=== PATIENT | male | born 1960 | race Caucasian/White ===

== ENCOUNTER 2016-06-02 23:07 | Inpatient (IN) | payer OTHER ==
--- NOTE | ~2016-06-02 | CO ---
Unit #: [id number] #: [id number] Patient: RICHIE DINERO [id number] [address] [place], [place] [address] [id number] I MR#: [id number] NAME: RICHIE DINERO. ROOM: 467 Age: 56 Sex: M Admission Date: 06/03/2016 : 1960 Attending Physician: Benito Peng M.D. Consultation Date: 06/06/2016 CONSULTATION REPORT DISCUSSION Mr. Richie Benavidez is a 56-year-old male, seen on 06/06/2016. The patient interviewed, chart reviewed, and obtained information from nursing staff. The patient feeling better with medications, still having withdrawals symptom, mood lability, irritability. Vital signs stable; temperature 98.4, pulse 68, blood pressure 138/74, oxygen saturation 100%. The patient reported still having anxiety, mood lability, restlessness. The patient is on 72-hour hold and has a sitter. Denied any current suicidal or homicidal ideation. The patient's urine drug screen was positive for benzodiazepine, cocaine, amphetamine, opioids. REVIEW OF SYSTEMS Complete review of systems is unremarkable except as mentioned above. MENTAL STATUS EXAMINATION General appearance; the patient dressed in hospital attire, seemed somewhat anxious and nervous. Attention span and concentration were poor. Speech was slow with long pauses. Oriented in time, place, and person. Mood and affect were labile. Thought process was circumstantial. Thought content; the patient was somewhat guarded, paranoid, but denied any thoughts of harming self or others. Recent and remote memory, poor. Language, able to name object and repeat phrases. Fund of knowledge, fair. Insight and judgment, fair to slightly impaired. DIAGNOSES 1. Opioid use disorder, severe, F11.20. 2. Cannabis abuse, moderate, F12.20. 3. Major depressive disorder, recurrent, severe, F33.2. ASSESSMENT/PLAN 1. Supportive psychotherapy and psychoeducation provided to the patient. 2. Educated about benefits and side effects of medication and course and prognosis of illness. 3. Advised to continue with current treatment on the inpatient unit. If needed, consider further adjustment of medication. The patient currently has a sitter. We will continue with the treatment. Please feel free to call if any questions telephone #[phone]. Dictated by... Didi Monterroso/chandler Unit #: [id number] #: [id number] Patient: RICHIE DINERO TD: 06/07/2016 06:24 JOB #: [id number] CONSULTATION REPORT Page 1 of 1 X Kilo Castañeda MD X CONSULTATION REPORT
--- NOTE | ~2016-06-02 | CO ---
Unit #: [id number] #: [id number] Patient: RICHIE DINERO [id number] [facility] [address]. [place], [place] [address] [id number] I MR#: [id number] NAME: RICHIE DINERO. ROOM: 467 Age: 56 Sex: M Admission Date: 06/03/2016 : 1960 Attending Physician: Benito Peng M.D. Primary Care Physician: No Primary Care Physician Consultation Date: 06/07/2016 CONSULTATION REPORT DISCUSSION Mr. Richie Dinero is a 56-year-old male seen on 06/07/16 in room 467, bed 1 at [facility]. The patient was admitted with overdose. Patient dressed casually in hospital attire. Has a sitter. The patient continues to report that he needs to go to inpatient psych after he is done treatment here. The patient still reports endorsing feeling sad, depressed, feeling of hopelessness, worthlessness, passive SI, anxious, nervous. Reports medication is helping him but still having above-mentioned symptoms. Vital signs stable, 98.4, 70, respirations 16, blood pressure 117/85. REVIEW OF SYSTEMS A complete review of systems is unremarkable. MENTAL STATUS EXAMINATION General appearance - Patient dressed casually in hospital attire. Attention span, concentration - Fair. Speech - Slow. Thought process - Circumstantial, guarded. Patient denied any thoughts of harming others but having passive SI. Denied any auditory or visual hallucinations. Recent and remote memory - Fair to poor. Language - Intact. Fund of knowledge - Fair. Insight and judgment - Fair to poor. DIAGNOSIS Opiate use disorder, severe - F11.20; cannabis abuse, moderate - F12.20; major depressive disorder, recurrent, severe - F33.2. ASSESSMENT AND PLAN 1. Supportive psychotherapy and psychoeducation provided to the patient. 2. Educated about benefits and side effects of medication and course and prognosis of illness. 3. Advised to continue with 1:1 monitoring and consider transferring patient to [facility] once the patient is medically stable. Please feel free to call with any questions, telephone number . Dictated by... Kilo Castañeda M.D. GRSI/teri Unit #: [id number] #: [id number] Patient: RICHIE DINERO TD: 06/08/2016 11:36 JOB #: [id number] CONSULTATION REPORT Page 1 of 1 X Kilo Castañeda MD CONSULTATION REPORT
--- NOTE | ~2016-06-02 | CO ---
Unit #: [id number] #: [id number] Patient: SIMONA DINERO [id number] [address] [place], [place] [address] [id number] I MR#: [id number] NAME: SIMONA DINERO. ROOM: [facility] Age: 56 Sex: M Admission Date: 06/03/2016 : 1960 Attending Physician: Lizzy Chaudhari M.D. Primary Care Physician: Melania Primary Care Physician Consultation Date: 06/03/2016 CONSULTATION REPORT REASON FOR CONSULT ICU management. CHIEF COMPLAINT Unresponsiveness. HISTORY OF PRESENT ILLNESS This is a 56-year-old male with past medical history significant for polysubstance abuse, depression, diabetes and chronic alcohol abuse, who presented to the emergency room yesterday night after he was found unresponsive. Apparently patient was brought to the emergency room yesterday night via EMS after he was found unresponsive in a friend's bathroom. Patient was in his usual health condition before this episode. Patient was unresponsive and hypoxic on presentation. He was given Narcan multiple times in the ER with temporary arousal; however, by the time he made it to the ICU patient was very lethargic and hard to arouse and so a STAT blood gas was obtained which was consistent with acute hypercarbic respiratory failure. Patient was placed on BiPAP and multiple Narcans were given to the patient with finally improvement in his mental status. Currently he is awake, alert, following commands. Patient denied any fever, chills or night sweats. He had some dry cough today but no sputum production, no chest pain. He is feeling tired overall. REVIEW OF SYSTEMS A 12-point review of systems was obtained and was negative except for what was mentioned in the HPI. PAST MEDICAL HISTORY 1. Polysubstance abuse. 2. Depression. 3. Suicidal attempts in the past. 4. Diabetes mellitus type 2. 5. Chronic alcohol abuse. 6. Tobacco abuse. 7. GERD. 8. Obesity. PAST SURGICAL HISTORY 1. Hemorrhoidectomy. 2. Right knee surgery. Unit #: [id number] #: [id number] Patient: SIMONA DINERO 3. Umbilical hernia repair. SOCIAL HISTORY Patient smokes approximately a pack per day and he drinks a fifth of alcohol daily. He has active history of polysubstance abuse including cocaine, methamphetamine, heroin and marijuana. FAMILY HISTORY None. ALLERGIES Morphine. HOME MEDICATION 1. Zoloft. 2. Metformin. 3. Carafate. 4. Multivitamin. 5. Aspirin. 6. Protonix. 7. Oxycodone. PHYSICAL EXAMINATION GENERAL: Patient appears tired and fatigued. He is slightly lethargic but able to be aroused with verbal stimuli. VITAL SIGNS: Temperature 98.1, blood pressure 105/59. HEENT: Normocephalic and atraumatic. PERRLA. EOMI. NECK: Supple. No JVD. No lymphadenopathy. CHEST: Mildly diminished bilaterally with fine rhonchi on the right lower base. HEART: S1, S2. No murmur, gallops or rubs. ABDOMEN: Soft, nontender. Bowel sound is positive. No hepatosplenomegaly. EXTREMITIES: No edema or cyanosis. SKIN: No rashes. DIAGNOSTIC STUDIES LABORATORY: Blood gas 7.28/52/125. Creatinine 1.6, chloride 107, CO2 27, white blood count 11.4. IMAGING: Chest x-ray slight infiltrate right lower base. ASSESSMENT 1. Acute hypoxic hypercarbic respiratory failure. 2. Status post drug overdose. 3. Acute kidney injury. 4. Aspiration pneumonia. 5. DME related to drug overdose. 6. Morbid obesity. PLAN 1. Patient is ill appearing but he is better currently on BiPAP. 2. Will wean BiPAP down/off as tolerated. 3. Continue IV hydration and follow lactic acid. 4. Broad-spectrum antibiotics pending culture. 5. Bronchodilator and mucolytics. 6. N.p.o. until he is more alert. 7. DVT prophylaxis. Unit #: [id number] #: [id number] Patient: SIMONA DINERO 8. Counseling regarding smoking and polysubstance abuse. 9. Diet modification for weight loss. Critical care time spent on this patient was 35 minutes. Dictated by... Khurram Álvarez M.D. EA/jessie TD: 06/03/2016 18:06 JOB #: [id number] CONSULTATION REPORT Page 1 of 1 X KHURRAM PHILLIPS MD X CONSULTATION REPORT
--- NOTE | ~2016-06-02 | DS ---
Unit #: [id number] #: [id number] Patient: SIMONA DINERO [id number] [address] [place], [place] [address] [id number] I MR#: [id number] NAME: SIMONA DINERO. ROOM: 467 Age: 56 Sex: M Admission Date: 06/03/2016 : 1960 Discharge Date: 06/07/2016 Attending Physician: Benito Peng M.D. Primary Care Physician: No Primary Care Physician DISCHARGE SUMMARY DISCHARGE DIAGNOSES 1. Acute hypoxic respiratory failure, which has resolved. Patient is oxygenating at 94% on room air and, with ambulation, is 98% to 99%. 2. Drug overdose. 3. Aspiration pneumonia in the left upper lobe. 4. Suicide ideation with attempt. 5. Hypomagnesemia. PROCEDURES None. CONSULTANTS 1. Dr. Matthew Álvarez of pulmonary. 2. Dr. Castañeda of psychiatry DIAGNOSTIC STUDIES IMAGING: Chest x-ray on June 02, 2016. Impression: Cardiomegaly with left base atelectasis or infiltrate and a trace amount of left pleural fluid. Lung volumes are low. Another chest x-ray on June 06, 2016. Heart size normal limits. Patient has developed patchy infiltrates in both lungs, most pronounced in the left upper lobe consistent with possible pneumonia. No pneumothorax seen. There may be a trace left pleural effusion. LABORATORY: On the day of discharge, patient's labs are: BMP: Glucose 178, BUN 9, creatinine 0.8, sodium is 144, potassium 3.7, chloride 107, CO2 30, calcium 8.8, magnesium was 1.3, total protein is 5.7, albumin is 2.9, total bilirubin was 0.2, AST was 28, ALT of 66, and alk phos 69. Patient's hemoglobin A1c was 5.9. CBC with WBC of 8.3, RBC of 3.82, hemoglobin is 11.5, hematocrit is 34.7, MCV is 90.7, MCH is 30.2, MCHC is 33.3, RDW 13.7, platelets 227, and MPV of 7.7. Patient's sputum had normal respiratory carla. Blood culture had no growth. HOSPITAL COURSE Patient is a 56-year-old male with past medical history of type 2 diabetes, polysubstance abuse, chronic depression with prior suicide attempt, chronic alcohol usage, tobacco usage, obesity, and acid reflux who presented to the hospital via EMS and was unresponsive. When seen in the emergency department by the admitting physician, patient was awake and aroused. Patient was found unresponsive in the friend's bathroom. Patient was given Narcan in the emergency department with marginal response. Patient was hypoxic with room air sat of 88%. He was given the addition of Narcan and had improved in his mental status. Patient was Unit #: [id number] #: [id number] Patient: SIMONA DINERO hydrated and given a gram of Rocephin, azithromycin, and clindamycin with finding of left lower lobe infiltrates. He was admitted to the ICU for poor respiratory status. He was placed on BiPAP. Patient did become more alert and awake later on and stated that he had overdosed in an attempt for suicide. Patient tells me that he is suicidal when he is depressed and he is depressed because he had lost a child as well as multiple family members a couple of years ago. He and his have been , but are still . He tells me that he is unhappy with his current life status and had fluctuations in suicidal ideation throughout this hospitalization. Patient was seen consultation with Dr. Castañeda, psychiatry. Patient's did come by to visit patient during this hospitalization and together, they have agreed that it is best that patient be admitted to [facility] for continuing major depression with multiple suicidal attempts. At this time, patient is oxygenating well on room air. He does have some chest wall pain, but repeat chest x-ray is stable. We did perform 2D echo on this patient with normal findings. Of note, patient did have a stress echo on April 12, 2016, and the impression at that time was patient probably had prior inferior infarction with no ischemia and probably involving the right ventricle, but he did have a normal EKG on Lexiscan and normal ejection fraction of 50%. Noted his 2D echo today shows that he has a left ventricular systolic function estimated to be about 60%, mild concentric left ventricular hypertrophy, no regional wall motion abnormalities noted, mildly dilated left ventricle, normal valvular function, no evidence of any prior (1) . It is thought by myself and Dr. Jennifer Álvarez that patient is stable to be discharged to [facility] for continuing psychiatric care there. The patient was discharged in stable condition. DISCHARGE ACTIVITIES Patient can ambulate with a rolling walker. DISCHARGE MEDICATIONS Include: 1. Tylenol 650 mg every 6 hours as needed for pain. 2. Magnesium oxide 30 mL every 6 hours as needed for constipation. 3. Gabapentin 300 mg orally 3 times daily. 4. Trazodone 100 mg orally at bedtime. 5. Metformin 500 mg orally twice daily. 6. Requip 1 mg orally at bedtime. 7. Vistaril 50 mg orally 3 times daily. 8. Multivitamin 1 tablet orally daily. 9. Aspirin 81 mg orally daily. 10. Vitamin B12 1 tablet orally 3 times daily. 11. Magnesium oxide 400 mg orally twice daily. 12. Levaquin 750 mg orally until June 10, 2016. This dictation took 45 minutes to include coordinating care and patient education. Dictated by... Tish Cheatham PA-C for Didi Cano/leslie TD: 06/08/2016 05:49 JOB #: [id number] Unit #: [id number] #: [id number] Patient: SIMONA DINERO DISCHARGE SUMMARY Page 1 of 1 X X DISCHARGE SUMMARY
--- NOTE | ~2016-06-02 | CR71 ---
[facility] A Service of [facility] RADIOLOGY TEXT RESULTS PATIENT: SIMONA DINERO LOCATION: [facility] 46-01 : [birth year] UNIT #: [id number] AGE: [address]: Benito Peng MD SEX: M ORDER DR: [id number] [facility] [address] [place], [place] [address] [id number] MR#: [id number] Acc #: [id number] NAME: SIMONA DINERO. : 1960 SEX: M STUDY DATE/TIME: 06/06/2016 12:09 UNIT: [facility] ROOM: [facility] STUDY DESCRIPTION: CR Chest Single View Attending Physician: Benito Peng M.D. Ordering Physician: Brennan Taylor M.D. Primary Care Physician: Primary Care Physician No MEDICAL IMAGING REPORT This report is preliminary unless electronic signature is present EXAM Portable chest. INDICATIONS Shortness of breath starting today. COMARISON: Comparison is made to a prior exam from June 02, 2016. FINDINGS Heart size is within normal limits for portable technique. Patient has developed patchy infiltrates in both lungs most pronounced within the left upper lobe. These are new when compared to the prior exam and certainly could reflect multifocal pneumonia. Short-term followup exam to document resolution is recommended. No pneumothorax is seen. There may be a trace left pleural effusion. Dictated by... Nyla Andrade M.D. THIS IS AN ELECTRONICALLY VERIFIED REPORT Nyla Andrade M.D. at 06/07/2016 12:26 PM AFF/mitra TD: 06/06/2016 15:24 JOB #: [id number] MEDICAL IMAGING REPORT Page 1 of 1 COPY
--- NOTE | ~2016-06-02 | HP ---
Unit #: [id number] #: [id number] Patient: SIMONA DINERO [id number] [place] [id number] [facility]. [place], [place] [address] [id number] MR#: [id number] NAME: SIMONA DINERO. ROOM: [facility] Age: 56 Sex: M Admission Date: 06/03/2016 : 1960 Attending Physician: Lizzy Chaudhari M.D. Primary Care Physician: No Primary Care Physician HISTORY AND PHYSICAL CHIEF COMPLAINT Unresponsiveness. HISTORY OF PRESENT ILLNESS Mr. Dinero is a 56-year-old male brought to the emergency department last evening unresponsive. The patient does arouse now and ask for water, but will not give me any history on what lead to him being admitted. Thus, history is taken only from the chart. The patient presented to the emergency room via EMS at approximately 10:40 last evening, after being found unresponsive in a friend's bathroom. He was reportedly alert and functioning normally prior to entering the restroom. Onset of altered mental status cannot be confirmed. The patient was given Narcan by EMS with marginal response. Upon presentation pulse rate was mildly elevated at 100, blood pressure 103/69 and oxygen saturations were low at 88% on room air. The patient was given another 2 mg of Narcan in the emergency room upon arrival with some improvement in mental status. He was also given a 1 liter normal saline bolus and given Rocephin, azithromycin and clindamycin due to findings of a left lower lobe infiltrate. He was given another 2 mg of Narcan I believe and became arousable. He was admitted to the ICU given his poor respiratory status. The patient has become increasingly hypoxic overnight. He is now maintained on BiPAP. I have given him 2 mg of Narcan this morning and the patient is now more awake. He states he does not know what happened. PAST MEDICAL HISTORY 1. History of polysubstance abuse. To record review the [facility] after presenting for alcohol and polysubstance use. During that hospitalization he was transferred to this facility, where he was found to have a T11 compression fracture and a syncopal episode. He underwent Cardiolite that was negative. He was subsequently [facility]. 2. History of depression with prior suicide attempt. 3. Diabetes mellitus type 2. Unknown to me if it is insulin requiring, though per record review it does not appear it is. 4. Chronic alcohol abuse. 5. Tobaccoism. 6. Gastroesophageal reflux disease. 7. Obesity. PAST SURGICAL HISTORY 1. Hemorrhoidectomy. 2. Right knee surgery. Unit #: [id number] #: [id number] Patient: SIMONA DINERO 3. Umbilical hernia repair. SOCIAL HISTORY The patient smokes approximately a pack of cigarettes per day and per record review drinks about a fifth of alcohol daily. He also has a history of polysubstance abuse, including cocaine, methamphetamine, heroin and marijuana. FAMILY HISTORY Per record review, none. ALLERGIES Morphine. HOME MEDICATIONS Not currently available to me at this time. However, the patient was discharged from this facility on 1. Zoloft 100 mg in the morning. 2. Metformin 500 mg b.i.d. 3. Carafate 1 g p.o. q.12 h. 4. Daily multivitamin. 5. Aspirin 81 mg daily. 6. Protonix 40 mg daily. 7. Oxycodone for a short time frame. It is unclear to me if he is still taking any of these medications. REVIEW OF SYSTEMS The patient arouses with stimulation, asks for water, but otherwise ten point review of systems is unobtainable. PHYSICAL EXAMINATION GENERAL: The patient is arousable and asks for water. He does not appear in any acute distress. However, I will note he falls asleep rather easily. VITALS: Temperature 97.9, blood pressure 94/53, pulse rate 85, respiratory rate 16, oxygen saturation currently 99% on BiPAP after Narcan. Current BiPAP settings include 14/5. HEENT: Pupils are equally round and reactive bilaterally. Anicteric sclerae. No conjunctival pallor. Oropharynx appears to not have any erythema or exudate, but is obstructed due to BiPAP. NECK: Supple. No lymphadenopathy. No thyromegaly. No jugular venous distension. LUNGS: Mildly diminished bilaterally, but otherwise clear, without wheezes, rhonchi or crackles. HEART: Regular rate and rhythm without murmur, rub or gallop. ABDOMEN: Soft, nontender and nondistended. Positive bowel sounds. No appreciable hepatosplenomegaly. EXTREMITIES: No cyanosis, clubbing or edema. Pedal pulses 2/4. SKIN: Warm, moist. No appreciable rash. There is some thickening of the skin on the knees. Toenails are thickened and long. NEUROLOGIC: Again, pupils are equally round and reactive as noted. The patient does move all four extremities. Deep tendon reflexes are 2/4 in the upper and lower extremities bilaterally, including biceps, brachial radialis, patellar. He has a negative Babinski bilaterally. Sensation grossly appears intact. Gait and rapid alternating hand movements were not assessed due to mental status. PSYCHIATRIC: Sedated. Seems avoidant. MUSCULOSKELETAL: No joint erythema or malformation noted. Unit #: [id number] #: [id number] Patient: SIMONA DINERO DIAGNOSTIC STUDIES IMAGING: Chest x-ray done in the emergency department reveals left lower lobe infiltrate versus atelectasis. LABORATORY: In the emergency department upon presentation, initially white blood cell count 14.5, hemoglobin 13.3, platelets 255,000. This morning white blood cell count now down to 11.4, hemoglobin 12.3 and platelet count 230,000 with 8% bands. Upon presentation the patient had an elevated creatinine of 1.6, which is now down to 1.3 this morning. AST elevated at 218, ALT 150, alkaline phosphatase 107 upon presentation last evening, and alcohol is negative. LFTs were not checked this morning. Glucose this morning is elevated at 240, but otherwise lab work is unremarkable. Lactic acid upon presentation elevated at 3.0. ABG upon presentation revealed pH 7.21, pCO2 61, pO2 73. This morning, after being on BiPAP, pH is 7.15, pCO2 81, pO2 51. Urine drug screen is positive for benzodiazepines, cocaine, amphetamines and opiates. CARDIOVASCULAR: Twelve lead EKG done in the emergency department revealed Q waves in 1 and AVL and right bundle branch block in complete. Otherwise normal sinus rhythm. No ST or T wave abnormalities. ASSESSMENT 1. Sepsis secondary to left lower lobe pneumonia. Question aspiration versus healthcare associated. 2. Acute hypercapnic hypoxic respiratory failure, multifactorial. 3. Altered mental status secondary to polysubstance overdose in combination with probable CO2 narcosis, related to polysubstance overdose. 4. Polysubstance overdose, including benzodiazepines, cocaine, amphetamine and opiates. 5. Acute kidney injury, prerenal. 6. Transaminitis. 7. History of alcohol abuse with negative alcohol level currently. 8. Depression with history of recent suicide attempt. 9. Recent T11 fracture. 10. Gastroesophageal reflux disease. 11. Diabetes mellitus type 2. PLAN 1. Will continue to monitor the patient in the ICU. 2. The patient has been started on empiric vancomycin and Zosyn in regard to his pneumonia. Will obtain a sputum gram stain and culture and blood cultures are also currently pending. Sepsis protocol has been initiated. 3. Will maintain the patient on BiPAP. As noted above, I have given him a single dose of Narcan and he seems to be more awake. I am going to follow up ABG in [address] him on a Narcan drip if mental status continues to decline. However, if he remains significantly acidotic will require intubation. This has been discussed with Dr. Álvarez, who is currently following the patient. 4. Monitor mental status. He does not appear to have any neurologic deficits at this time and I do not think CT scan of the head is necessary. 5. Will continue IV fluids in regard to acute kidney injury. This appears to be improving already. 6. Will check CPK in regard to transaminitis. Will also check a viral hepatitis panel and monitor closely. This may also be alcohol Unit #: [id number] #: [id number] Patient: SIMONA DINERO induced to some degree. Will have to monitor for signs of withdrawal. 7. Will place on Accu-Cheks every 6 hours with low-dose sliding scale. Hemoglobin A1c is currently pending. 8. DVT and GI prophylaxis. Time spent on admission was 60 minutes. Dictated by Lizzy Chaudhari M.D. SERAFIN/maureen TD: 06/03/2016 07:34 JOB #: [id number] HISTORY AND PHYSICAL Page 1 of 1 X Lizzy Chaudhari MD HISTORY AND PHYSICAL
--- NOTE | ~2016-06-02 | EKG ---
PATIENT: SIMONA DINERO UNIT #: [id number] Ventricular Rate: 91 BPM Atrial Rate: 91 BPM P-R Interval: 152 ms QRS Duration: 102 ms Q-T Interval: 382 ms QTC Calculation(Bezet): 469 ms P [place]: 62 degrees Calculated R [place]: 50 degrees Calculated T [place]: 6 degrees Diagnosis Line: Normal sinus rhythm Diagnosis Line: Incomplete right bundle branch block Diagnosis Line: Borderline ECG Diagnosis Line: When compared with ECG of 12-APR-2016 05:48, Diagnosis Line: No significant change was found Diagnosis Line: Confirmed by EDWARD SOLIZ MD ([id number]) on 06/04/2016 Diagnosis Line: 4:29:51 PM INTERPRETING MD: HEYDI UMANA
--- NOTE | ~2016-06-02 | CR72 ---
[facility] A Service of [facility] & [facility] RADIOLOGY TEXT RESULTS PATIENT: SIMONA DINERO LOCATION: [place] [id number] : [birth year] UNIT #: [id number] AGE: [address]: Lizzy Chaudhari MD SEX: M ORDER DR: [id number] [facility] [address]. [place], [place] [address] [id number] I MR#: [id number] #: [id number] NAME: SIMONA DINERO. : 1960 SEX: M STUDY DATE/TIME: 06/02/2016 2330 UNIT: [facility] ROOM: [facility] STUDY DESCRIPTION: CR Chest Single View Portable Attending Physician: Lizzy Chaudhari M.D. Ordering Physician: Han Montesinos M.D. Primary Care Physician: No Primary Care Physician MEDICAL IMAGING REPORT This report is preliminary unless electronic signature is present EXAM Portable chest on 06/02 at 2330. INDICATION Shortness of air, congestion, mental status changes today. FINDINGS AP portable chest compared with 12/06/2011. Heart is enlarged. Lung volumes are low. There is atelectasis or infiltrate in the left base. There is a small volume of left pleural fluid. No pneumothorax. IMPRESSION Cardiomegaly with left base atelectasis or infiltrate and a trace amount of left pleural fluid. Lung volumes are low. Dictated by... Duran Ramirez Jr., M.D. THIS IS AN ELECTRONICALLY VERIFIED REPORT Duran Ramirez Jr., M.D. at 06/03/2016 12:35 PM TONNY/corby TD: 06/03/2016 08:04 JOB #: [id number] MEDICAL IMAGING REPORT Page 1 of 1 COPY
--- NOTE | ~2016-06-02 | CO ---
Unit #: [id number] #: [id number] Patient: RICHIE DINERO [id number] [facility] [address] [facility]. [place], [place] [address] [id number] MR#: [id number] NAME: RICHIE DINERO ROOM: 467 Age: 56 Sex: M Admission Date: 06/03/2016 : 1960 Attending Physician: Benito Peng M.D. Primary Care Physician: Primary Care Physician No Consultation Date: 06/05/2016 CONSULTATION REPORT REASON FOR CONSULTATION Polysubstance abuse, anxiety, agitation. HISTORY OF PRESENT ILLNESS Mr. Richie Dinero is a 56-year-old male, seen in room 467, bed 1 at [facility] on 06/05/2016. The patient admitted using multiple drugs. The patient received treatment at [facility] from 03/31/2016 to 04/10/2016 with diagnosis of mood disorder, substance abuse disorder. The patient was on Wellbutrin, Zoloft, trazodone, and Seroquel. The patient has a history of alcohol dependence, opioid dependence, cocaine abuse, cannabis abuse. The patient was somewhat anxious and nervous. Denied any suicidal or homicidal ideation, but agitated. Currently, has a sitter and on a 72-hour hold. The patient was admitted in an unresponsive state. Urine drug screen was positive for multiple drugs. Urine drug screen was positive for benzodiazepine, cocaine, amphetamine, and opioids. PAST PSYCHIATRIC HISTORY Remarkable for history of depression and treatment at [facility] as mentioned above. MEDICAL HISTORY Remarkable for history of diabetes mellitus, chronic alcohol abuse, gastroesophageal reflux disease, and obesity. MEDICATIONS The patient is on Zoloft 100 mg in the morning, metformin 500 mg b.i.d., Carafate, aspirin, Protonix, and oxycodone. FAMILY HISTORY AND SOCIAL HISTORY The patient has a poor support system. No history of any abuse. History of substance abuse as mentioned above. REVIEW OF SYSTEMS Complete review of systems is unremarkable. MENTAL STATUS EXAMINATION General appearance, the patient dressed in hospital attire. Attention span and concentration, poor. Speech, slow, but regular rate. Oriented in time, place, and person. Mood and affect, labile. Thought process, circumstantial. Thought content, guarded, paranoid, mood lability, but denied any thoughts of harming self or others. Recent and remote memory, poor. Language, able to name object and repeat phrases. Fund of knowledge, fair. Insight and judgment, fair to slightly impaired. Unit #: [id number] #: [id number] Patient: RICHIE DINERO DIAGNOSES Psychiatric: Opioid use disorder, severe, F11.20, cannabis abuse, moderate, F12.20; major depressive disorder, recurrent, severe, F33.2. Secondary diagnosis: Deferred. Medical diagnosis: Please refer to H and P. Stressors: Psychosocial stressors. ASSESSMENT/PLAN 1. Supportive psychotherapy and psychoeducation provided to the patient. 2. Educated about benefits and side effects of medication and course and prognosis of illness. 3. Advised to continue with current treatment on the inpatient unit and continue with a sitter and one-to-one monitoring for safety of patient and resume home medication with a plan to add medication for withdrawal such as Neurontin 300 mg t.i.d., Vistaril 50 mg t.i.d., and Requip 1 mg at bedtime, and trazodone 100 mg at bedtime. We will continue to monitor. If needed, consider further adjustment of medication. Dictated by... Didi Monterroso/chandler TD: 06/06/2016 02:53 JOB #: [id number] CONSULTATION REPORT Page 1 of 1 X Kilo Castañeda MD X CONSULTATION REPORT
[~2016-06-02 23:07] MED LIST: ACETAMINOPHEN PO; AL-MAG HYDROX-S30 M1 PO; BAYER CHEWABLE81 MG PO; BUPROPION XL300 MG PO; CARAFATE1 GM PO; CERTAGEN PO; DESYREL50 MG PO; METFORMIN HCL500 M3 PO; NICOTINE P1 PATCH .1 TD; OXYCONTIN15 MG PO; PROTONIX PO; SEROQUEL XR200 MG PO; THORAZINE100 MG PO; TOPIRAMATE100 MG PO; VITAMIN B PO; ZOLOFT100 MG PO
[2016-06-02 23:44] LABS: BASOPHIL% 0.1 % (0-2.5); EOSINOPHIL% 0.1 % (0.0-7.0); HEMATOCRIT 40.5 % (38.0-50.0); HEMOGLOBIN 13.3 gm/dL (13.0-16.0); LYMPHOCYTE# 0.5 X10e3 (1.0-3.5); LYMPHOCYTE% 3.4 % (17.0-45.0); MEAN CELL VOLUME 91.3 FL (83-96); MEAN CORPUSCULAR HGB CONC 32.9 g/dL (30-36); MEAN PLATELET VOLUME 7.5 FL (6.5-11.5); MONOCYTE# 0.9 X10e3 (0-1.0); MONOCYTE% 6.3 % (3.0-12.0); NEUTROPHIL# 13.1 X10e3 (1.5-7.1); NEUTROPHIL% 90.1 % (40-75); PLATELET COUNT 255 X10e3 (140-420); RED BLOOD COUNT 4.43 X10e (3.90-5.60); RED CELL DISTRIBUTION WIDTH 13.8 % (11.0-15.5); WHITE BLOOD COUNT 14.5 X10e3 (4.0-10.5)
[2016-06-02 23:45] LABS: DIFF IND NO
[2016-06-03 00:06] LABS: ALBUMIN SERUM 4.3 g/dL (3.5-5.0); ALKALINE PHOSPHATASE 107 U/L (32-92); ALT (SGPT) 150 U/L (10-40); AST (SGOT) 218 U/L (10-42); BILIRUBIN, DIRECT 0.1 mg/dL (0.0-0.2); BILIRUBIN,INDIRECT 0.4 mg/dL (0.0-0.9); BILIRUBIN,TOTAL 0.5 mg/dL (0.2-2.0); BLOOD UREA NITROGEN 20 mg/dL (9-23); CALCIUM SERUM 8.8 mg/dL (8.4-10.2); CARBON DIOXIDE 26 mmol/L (22-31); CHLORIDE 100 mmol/L (100-111); CREATININE SERUM 1.6 mg/dL (0.6-1.4); GLOM FILT RATE Estimated 48.2 mL/min (>60); GLUCOSE FASTING 102 mg/dL (70-110); POTASSIUM 4.2 mmol/L (3.5-5.1); PROTEIN TOTAL SERUM 7.6 g/dL (6.0-8.3); SODIUM 140 mmol/L (135-145)
[2016-06-03 00:08] LABS: ALCOHOL BLOOD <5 mg/dL (0)
[2016-06-03 02:17] LABS: AMPHETAMINE POS (NEG); BARBITURATES NEG (NEG); BENZODIAZEPINES POS (NEG); COCAINE POS (NEG); MARIJUANA NEG (NEG); OPIATES POS (NEG); TRICYCLIC ANTIDEPRESSANTS NEG (NEG); U METHADONE NEG (NEG)
[2016-06-03 03:57] LABS: ARTERIAL BLD GAS O2 SATURATION 92.3 % (90.0-100.0); ARTERIAL BLOOD GAS HCO3 24.3 mmol/L; ARTERIAL BLOOD GAS PCO2 60.8 mmHg (35.0-45.0); ARTERIAL BLOOD GAS PO2 73.2 mmHg (80.0-100)
[2016-06-03 03:58] LABS: ARTERIAL BLOOD GAS ALLEN TEST NORMAL; ARTERIAL BLOOD GAS ART SITE LEFT RADIAL; ARTERIAL BLOOD GAS DELIVERY VENTURI MASK; ARTERIAL BLOOD GAS MET HB 0.9 %sat (0.0-2.0); ARTERIAL DRAW? YES
[2016-06-03 04:31] LABS: BASOPHIL% 0.4 % (0-2.5); EOSINOPHIL% 0.1 % (0.0-7.0); HEMATOCRIT 37.3 % (38.0-50.0); HEMOGLOBIN 12.3 gm/dL (13.0-16.0); LYMPHOCYTE# 0.6 X10e3 (1.0-3.5); LYMPHOCYTE% 4.9 % (17.0-45.0); MEAN CORPUSCULAR HEMOGLOBIN 30.3 PG (28-34); MEAN CORPUSCULAR HGB CONC 32.9 g/dL (30-36); MEAN PLATELET VOLUME 7.1 FL (6.5-11.5); MONOCYTE# 0.5 X10e3 (0-1.0); MONOCYTE% 4.6 % (3.0-12.0); NEUTROPHIL# 10.3 X10e3 (1.5-7.1); PLATELET COUNT 230 X10e3 (140-420); RED BLOOD COUNT 4.05 X10e (3.90-5.60); RED CELL DISTRIBUTION WIDTH 13.8 % (11.0-15.5); WHITE BLOOD COUNT 11.4 X10e3 (4.0-10.5)
[2016-06-03 04:32] LABS: DIFF IND YES
[2016-06-03 04:45] LABS: PLATELET ESTIMATE NORMAL (NORMAL)
[2016-06-03 04:46] LABS: ANISOCYTOSIS SL; OVALOCYTES PRESENT
[2016-06-03 04:51] LABS: BUN/CREATININE RATIO 17.69; CALCIUM SERUM 8.4 mg/dL (8.4-10.2); CREATININE SERUM 1.3 mg/dL (0.6-1.4); GLOM FILT RATE Estimated 61.9 mL/min (>60); POTASSIUM 3.8 mmol/L (3.5-5.1)
[2016-06-03 06:26] LABS: ARTERIAL BLD GAS O2 SATURATION 76.9 % (90.0-100.0); ARTERIAL BLOOD GAS HCO3 28.3 mmol/L; ARTERIAL BLOOD GAS MET HB 0.7 %sat (0.0-2.0)
[2016-06-03 06:33] LABS: ARTERIAL BLOOD GAS ALLEN TEST NORMAL; ARTERIAL BLOOD GAS ART SITE RIGHT BRACHIAL; ARTERIAL BLOOD GAS PCO2 81.1 mmHg (35.0-45.0); ARTERIAL BLOOD GAS PO2 51.1 mmHg (80.0-100); ARTERIAL BLOOD GAS pH 7.151 (7.350-7.450); ARTERIAL DRAW? YES
[2016-06-03 06:34] LABS: ARTERIAL BLOOD GAS DELIVERY BIPAP 14/5
[2016-06-03 08:16] LABS: ARTERIAL BLD GAS O2 SATURATION 88.9 % (90.0-100.0); ARTERIAL BLOOD GAS CARBOXY HB 0.7 %sat (0.0-9.0); ARTERIAL BLOOD GAS HCO3 26.5 mmol/L; ARTERIAL BLOOD GAS MET HB 0.9 %sat (0.0-2.0); ARTERIAL BLOOD GAS pH 7.239 (7.350-7.450)
[2016-06-03 08:17] LABS: ARTERIAL BLOOD GAS PCO2 61.9 mmHg (35.0-45.0); ARTERIAL BLOOD GAS PO2 62.9 mmHg (80.0-100)
[2016-06-03 08:18] LABS: ARTERIAL BLOOD GAS ALLEN TEST NORMAL; ARTERIAL BLOOD GAS ART SITE RIGHT BRACHIAL; ARTERIAL BLOOD GAS DELIVERY BIPAP 14/5; ARTERIAL DRAW? YES
[2016-06-03 09:32] LABS: URINE SOURCE CATH
[2016-06-03 09:42] LABS: URINE APPEARANCE CLEAR; URINE BILIRUBIN NEG (NEG); URINE BLOOD NEG (NEG); URINE COLOR YELLOW; URINE GLUCOSE NEG (NEG); URINE KETONE NEG (NEG); URINE LEUKOCYTE ESTERASE NEG (NEG); URINE NITRATE NEG (NEG); URINE PROTEIN NEG (NEG); URINE SPECIFIC GRAVITY 1.015 (1.003-1.035); URINE UROBILINOGEN 0.2 MG/DL (NEG)
[2016-06-03 11:47] LABS: ARTERIAL BLD GAS O2 SATURATION 97.7 % (90.0-100.0); ARTERIAL BLOOD GAS CARBOXY HB 0.3 %sat (0.0-9.0); ARTERIAL BLOOD GAS HCO3 24.9 mmol/L; ARTERIAL BLOOD GAS MET HB 0.8 %sat (0.0-2.0); ARTERIAL BLOOD GAS pH 7.281 (7.350-7.450)
[2016-06-03 11:49] LABS: ARTERIAL BLOOD GAS ALLEN TEST NORMAL; ARTERIAL BLOOD GAS ART SITE RIGHT BRACHIAL; ARTERIAL BLOOD GAS DELIVERY BIPAP 14/5; ARTERIAL BLOOD GAS PCO2 52.9 mmHg (35.0-45.0); ARTERIAL DRAW? YES
[2016-06-04 04:15] LABS: ARTERIAL BLOOD GAS CARBOXY HB 0.4 %sat (0.0-9.0); ARTERIAL BLOOD GAS HCO3 28.3 mmol/L; ARTERIAL BLOOD GAS MET HB 1.1 %sat (0.0-2.0); ARTERIAL BLOOD GAS PCO2 49.1 mmHg (35.0-45.0); ARTERIAL BLOOD GAS pH 7.369 (7.350-7.450)
[2016-06-04 04:20] LABS: ARTERIAL BLOOD GAS ALLEN TEST NORMAL; ARTERIAL BLOOD GAS ART SITE RIGHT RADIAL; ARTERIAL DRAW? YES
[2016-06-04 04:21] LABS: ARTERIAL BLOOD GAS DELIVERY BIPAP 14/5
[2016-06-04 05:03] LABS: BASOPHIL# 0.1 X10e3 (0-0.3); BASOPHIL% 0.9 % (0-2.5); DIFF IND NO; EOSINOPHIL# 0.1 X10e3 (0-0.7); EOSINOPHIL% 0.9 % (0.0-7.0); HEMATOCRIT 35.1 % (38.0-50.0); HEMOGLOBIN 11.7 gm/dL (13.0-16.0); LYMPHOCYTE# 1.8 X10e3 (1.0-3.5); LYMPHOCYTE% 18.9 % (17.0-45.0); MEAN CELL VOLUME 90.5 FL (83-96); MEAN CORPUSCULAR HEMOGLOBIN 30.1 PG (28-34); MEAN CORPUSCULAR HGB CONC 33.3 g/dL (30-36); MEAN PLATELET VOLUME 7.7 FL (6.5-11.5); MONOCYTE# 0.7 X10e3 (0-1.0); MONOCYTE% 7.4 % (3.0-12.0); NEUTROPHIL# 6.8 X10e3 (1.5-7.1); NEUTROPHIL% 71.9 % (40-75); PLATELET COUNT 178 X10e3 (140-420); RED BLOOD COUNT 3.88 X10e (3.90-5.60); RED CELL DISTRIBUTION WIDTH 13.8 % (11.0-15.5); WHITE BLOOD COUNT 9.4 X10e3 (4.0-10.5)
[2016-06-04 06:22] LABS: ALBUMIN SERUM 2.9 g/dL (3.5-5.0); BILIRUBIN,TOTAL 0.2 mg/dL (0.2-2.0); BUN/CREATININE RATIO 13.75; CALCIUM SERUM 7.8 mg/dL (8.4-10.2); CREATININE SERUM 0.8 mg/dL (0.6-1.4); GLOM FILT RATE Estimated 101.3 mL/min (>60); MAGNESIUM 1.2 mg/dL (1.6-3.0); POTASSIUM 3.7 mmol/L (3.5-5.1); PROTEIN TOTAL SERUM 5.7 g/dL (6.0-8.3)
[2016-06-05 03:02] LABS: HEMATOCRIT 36.8 % (38.0-50.0); HEMOGLOBIN 12.1 gm/dL (13.0-16.0); MEAN CORPUSCULAR HEMOGLOBIN 29.7 PG (28-34); MEAN PLATELET VOLUME 7.9 FL (6.5-11.5); RED BLOOD COUNT 4.09 X10e (3.90-5.60); RED CELL DISTRIBUTION WIDTH 14.1 % (11.0-15.5); WHITE BLOOD COUNT 8.2 X10e3 (4.0-10.5)
[2016-06-05 03:34] LABS: BUN/CREATININE RATIO 15.71; CALCIUM SERUM 8.8 mg/dL (8.4-10.2); CREATININE SERUM 0.7 mg/dL (0.6-1.4); MAGNESIUM 1.5 mg/dL (1.6-3.0)
[2016-06-06 07:18] LABS: HA AB IGM (HEPPAN) Nonreactive (()); HB CORE AB IGM (HEPPAN) Nonreactive (Nonreactive); HB S AG (HEPPAN) Nonreactive (Nonreactive); HEP C AB (HEPPAN) Nonreactive (Nonreactive); HEP C AB SIGNAL TO CUTOFF 0.01 ratio (<1.00)
[2016-06-06 12:29] LABS: CALCIUM SERUM 9.1 mg/dL (8.4-10.2); CREATININE SERUM 0.8 mg/dL (0.6-1.4); GLOM FILT RATE Estimated 101.3 mL/min (>60); POTASSIUM 3.5 mmol/L (3.5-5.1)
[2016-06-07 00:09] LABS: MAGNESIUM 1.5 mg/dL (1.6-3.0); POTASSIUM 4.2 mmol/L (3.5-5.1)
[2016-06-07 03:47] LABS: BASOPHIL% 0.2 % (0-2.5); DIFF IND NO; EOSINOPHIL# 0.1 X10e3 (0-0.7); EOSINOPHIL% 1.1 % (0.0-7.0); HEMATOCRIT 34.7 % (38.0-50.0); HEMOGLOBIN 11.5 gm/dL (13.0-16.0); MEAN CELL VOLUME 90.7 FL (83-96); MEAN CORPUSCULAR HEMOGLOBIN 30.2 PG (28-34); MEAN CORPUSCULAR HGB CONC 33.3 g/dL (30-36); MEAN PLATELET VOLUME 7.7 FL (6.5-11.5); MONOCYTE# 0.7 X10e3 (0-1.0); MONOCYTE% 8.1 % (3.0-12.0); NEUTROPHIL# 5.5 X10e3 (1.5-7.1); NEUTROPHIL% 66.6 % (40-75); PLATELET COUNT 224 X10e3 (140-420); RED BLOOD COUNT 3.82 X10e (3.90-5.60); RED CELL DISTRIBUTION WIDTH 13.7 % (11.0-15.5); WHITE BLOOD COUNT 8.3 X10e3 (4.0-10.5)
[2016-06-07 04:17] LABS: BUN/CREATININE RATIO 11.25; CALCIUM SERUM 8.8 mg/dL (8.4-10.2); CREATININE SERUM 0.8 mg/dL (0.6-1.4); GLOM FILT RATE Estimated 101.3 mL/min (>60); MAGNESIUM 1.3 mg/dL (1.6-3.0); POTASSIUM 3.7 mmol/L (3.5-5.1)
== END 2016-06-07 22:33 | disposition short-term general hospital (02) | DRG 917 ==
LOC: CED 23:07 → CEDOF 06-03 00:28 → CICCU2 06-03 03:28 → C4C 06-04 17:04
PROVIDERS: Emergency Medicine; Family Medicine; Internal Medicine; Physician Assistant Medical
PROC: B24BZZZ Ultrasonography of Heart with Aorta (ICD-10-PCS; principal; 2016-06-07)
DX: T40.1X2A Poisoning by heroin, intentional self-harm, initial encounter (principal); J69.0 Pneumonitis due to inhalation of food and vomit; J96.01 Acute respiratory failure with hypoxia; J96.02 Acute respiratory failure with hypercapnia; F33.2 Major depressive disorder, recurrent severe without psychotic features; F11.20 Opioid dependence, uncomplicated; N17.9 Acute kidney failure, unspecified; Y92.002 Bathroom of unspecified non-institutional (private) residence as the place of occurrence of the external cause; E83.42 Hypomagnesemia; E11.9 Type 2 diabetes mellitus without complications; Z79.84 Long term (current) use of oral hypoglycemic drugs; F12.20 Cannabis dependence, uncomplicated; F17.210 Nicotine dependence, cigarettes, uncomplicated; K21.9 Gastro-esophageal reflux disease without esophagitis; R74.0 Nonspecific elevation of levels of transaminase and lactic acid dehydrogenase [LDH]; R41.82 Altered mental status, unspecified; F10.10 Alcohol abuse, uncomplicated
CPT/HCPCS: 36415; 36600; 71010; 80048; 80053; 80074; 80076; 80202; 80307; 81003; 82550; 82803; 82947; 83036; 83605; 83735; 84132; 84484; 85025; 85027; 87040; 87070; 87205; 87806; 93005; 93306; 94640; 94660; 94760; 94761; 96361; 96374; 97116; 97163; 97166; 97535; 99285; C9113; G0480; J0456; J0696; J1650; J1815; J2060; J2310; J2543; J3370; J3475

== ENCOUNTER 2016-06-07 23:28 | Inpatient (IN) | payer OTHER ==
--- NOTE | ~2016-06-07 | DS ---
Unit #: [id number] #: [id number] Patient: SIMONA DINERO [id number] [facility] [address] [place] [address] [id number] MR#: [id number] NAME: SIMONA DINERO. ROOM: P207 Age: 56 Sex: M Admission Date: 06/07/2016 : 1960 Discharge Date: 06/13/2016 Attending Physician: Shanon Gómez M.D. Primary Care Physician: Primary Care Physician No DISCHARGE SUMMARY IDENTIFYING DATA Mr. Dinero is a 56-year-old single white male, who is a resident of [place], [place], and was transferred to us from [facility] on 72 hours hold. DISCHARGE DIAGNOSES Psychiatric: Major depressive disorder, recurrent, moderate, without psychotic features; opioid dependence, moderate and acute withdrawals; methamphetamine dependence, moderate; cocaine abuse, moderate; benzodiazepine abuse, moderate. Medical: Diabetes mellitus and gastroesophageal reflux disease. Stressors: Moderate psychosocial stressors. HISTORY OF PRESENT ILLNESS Please see initial psychiatric evaluation for details. PAST PSYCHIATRIC HISTORY Please see initial psychiatric evaluation for details. PAST MEDICAL HISTORY Please see initial psychiatric evaluation for details. HOSPITAL COURSE The patient was admitted to the adult psychiatric unit at [facility] and was oriented to the hospital environment. Routine p.r.n. medications were initiated, and he was started back on his home medications including his Wellbutrin, Zoloft, and Seroquel and initially was seen to be very agitated, irritable, impulsive, and refusing to stay in the treatment and showing poor insight into his situation and poor motivation towards treatment. However, he was able to settle down and was seen to be polite and pleasant and compliant with treatment recommendations and then was apologetic of his attitude earlier and was seen to be compliant with treatment recommendation and was taking the medications regularly and was tolerating them fairly well and as such, it was decided that he will be discharged home and will continue treatment on an outpatient basis. DISCHARGE MEDICATIONS Wellbutrin XL 300 mg in the morning for depression, Zoloft 200 mg a day for depression, Seroquel 200 mg a day for depression. DISCHARGE CONDITION Stable. Unit #: [id number] #: [id number] Patient: SIMONA DINERO CHENTE Vickers. Dictated by... Didi Estrada/chandler TD: 06/13/2016 07:38 JOB #: [id number] DISCHARGE SUMMARY Page 1 of 1 X Shanon Gómez MD DISCHARGE SUMMARY
--- NOTE | ~2016-06-07 | PN ---
Unit #: [id number] #: [id number] Patient: SIMONA DINERO [id number] [facility] [address] [place] [address] [id number] MR#: [id number] NAME: SIMONA DINERO. ROOM: P207 Age: 56 Sex: M Admission Date: 06/07/2016 : 1960 Attending Physician: Shanon Gómez M.D. Admitting Physician: Shanon Gómez M.D. Primary Care Physician: Primary Care Physician Melania MORGAN NOTES DATE OF SERVICE: 06/12/2016 SUBJECTIVE Mr. Dinero is a 56-year-old white male who was seen today and chart was reviewed, and case was discussed with the staff. He has been anxious, withdrawn . He has been complaining he has been taking the medications and tolerating them fairly well with no reported side effects. MENTAL STATUS EXAMINATION Middle-aged white male who was casually dressed with fair personal hygiene, appears to be in no acute distress or discomfort. He was awake and alert on interaction with intact orientation. His mood was anxious and depressed with a congruent affect. He denies any suicidal or homicidal ideations. His insight and judgment remain slightly impaired. TREATMENT PLAN 1. We will continue him on his current medications and treatment protocol. We will monitor his response and make further adjustments as needed. 2. We will continue to follow up. Dictated by... Didi Estrada/chandler TD: 06/12/2016 12:42 JOB #: [id number] [facility] PROGRESS NOTES Page 1 of 1 X Shanon Gómez MD PROGRESS NOTE
--- NOTE | ~2016-06-07 | PN ---
Unit #: [id number] #: [id number] Patient: RICHIE DINERO [id number] [facility] [address] [place] [address] [id number] MR#: [id number] NAME: RICHIE DINERO. ROOM: P207 Age: 56 Sex: M Admission Date: 06/07/2016 : 1960 Attending Physician: Shanon Gómez M.D. Admitting Physician: Shanon Gómez M.D. Primary Care Physician: Primary Care Physician Melania ROGEL PROGRESS NOTES DATE 06/10/2016 DISCUSSION Richie Dinero is a 56-year-old white male seen on 06/10/2016. The patient reported having a lot of problem with back pain. Mood still sad depressed. The patient isolative, guarded. Complete review of systems is unremarkable. Vital signs are 97.9, 61, 85/53. MENTAL STATUS EXAMINATION General appearance, the patient dressed in hospital attire. Attention span and concentration poor. Oriented to place and person. Mood and affect sad, depressed. Speech monotone. Thought process concrete. The patient denied any thoughts of harming self or others but still reporting feeling sad, depressed, hopelessness, withdrawn, isolative, seclusive. Recent and remote memory poor. Insight and judgement poor. DIAGNOSES Major depressive disorder recurrent severe ASSESSMENT/PLAN Advise to continue with current medication and therapeutic protocol. If needed consider further adjustment of medication. Dictated by... Didi Monterroso/lucille TD: 06/13/2016 04:33 JOB #: [id number] [facility] PROGRESS NOTES Page 1 of 1 X Kilo Castañeda MD X PROGRESS NOTE
--- NOTE | ~2016-06-07 | PN ---
Unit #: [id number] #: [id number] Patient: SIMONA DINERO [id number] [facility] [address] [place] [address] [id number] I MR#: [id number] NAME: SIMONA DINERO. ROOM: P207 Age: 56 Sex: M Admission Date: 06/07/2016 : 1960 Attending Physician: Shanon Gómez M.D. Admitting Physician: Shanon Gómez M.D. Primary Care Physician: Primary Care Physician Melania ROGEL PROGRESS NOTES DATE 06/09/2016 DISCUSSION Mr. Dinero is a 56-year-old white male with substance abuse and mood disorder who was seen today and chart was reviewed and case was discussed with the staff. He has been anxious, withdrawn and rather seclusive to himself. Meanwhile, he has been showing poor insight into his situation, poor motivation towards treatment and has been constantly wanting to leave. Meanwhile, he has been taking medications and tolerating them fairly well with no reported side effects. MENTAL STATUS EXAMINATION Middle-aged white male who was casually dressed with fair personal hygiene and appears to be in no acute distress or discomfort. He was awake and alert on interaction with intact orientation. His mood was anxious with congruent affect. He denies any suicidal or homicidal ideations. His insight and judgement remains slightly impaired. TREATMENT PLAN 1. We will continue on his current medications and treatment protocol. Will monitor his response to the medications and make further adjustments as needed. 2. Will continue to follow up. Dictated by... Didi Estrada/jese TD: 06/12/2016 09:14 JOB #: [id number] Unit #: [id number] #: [id number] Patient: SIMONA DINERO JUAN F PROGRESS NOTES Page 1 of 1 X Shanon Gómez MD PROGRESS NOTE
--- NOTE | ~2016-06-07 | PA ---
Unit #: [id number] #: [id number] Patient: SIMONA DINERO [id number] [facility] [address] [place] [address] [id number] I MR#: [id number] NAME: SIMONA DINERO. ROOM: P207 Age: 56 Sex: M Admission Date: 06/07/2016 : 1960 Date of Assessment: 06/06/2016 Attending Physician: Shanon Gómez M.D. Admitting Physician: Shanon Gómez M.D. Primary Care Physician: Primary Care Physician No PSYCHIATRIC ASSESSMENT DATE OF SERVICE 06/08/2016. IDENTIFYING DATA Mr. Dinero is a 56-year-old single white male, who is a resident of [place], [place], and was transferred to on a 72 hours hold from [facility]. CHIEF COMPLAINT "I overdosed on heroin." HISTORY OF PRESENT ILLNESS Mr. Dinero is a 56-year-old white male, who is known to us from previous encounter and carries a diagnosis of mood disorder and substance abuse and dependence, and was taken to [facility] after he overdosed on heroin and methamphetamine and Klonopin and crack and reports that he started off just parting with a friend and then he became depressed and started thinking about how he did not have anyone and how he just did not matter anymore and therefore, he ended up overdosing and was taken to the emergency room, where he was seen to be anxious, withdrawn, agitated, irritable, and showing very poor insight into his situation, though reporting suicidal ideation, he was refusing to stay in the treatment and was initially was put on 72 hours hold and was medically cleared, he was still seen to be danger to self and recommendation for inpatient level of care was made and the patient was transferred to us. However, on presentation here, the patient once again has been showing very poor insight into his situation, stating that he has just one day left in his 72 hours hold to and therefore, he wants to leave and has been showing poor insight into situation and poor motivation towards treatment, and remains at poor prognosis. He has overdosed on drugs and reports still feeling suicidal and that he would not feel safe if he was to sent home, but at the same time he does not want to stay in the treatment. SUBSTANCE ABUSE HISTORY The patient has extensive history of substance abuse and dependence including alcohol, cannabis, cocaine, acid, opioids, and methamphetamine, and more recently heroin and methamphetamine has been his drug of choice, though he also tested positive for Klonopin and crack cocaine upon presentation to the hospital emergency room. PAST PSYCHIATRIC HISTORY The patient has had history of inpatient psychiatric hospitalization at Unit #: [id number] #: [id number] Patient: SIMONA DINERO [facility], [facility], and [facility] and has been diagnosed and treated for mood disorder and substance abuse and dependence, though currently he has been noncompliant with medication and as such, has been decompensating. PAST MEDICAL HISTORY Diabetes mellitus. PERSONAL AND SOCIAL HISTORY A 56-year-old white male, who reports that he is single, unemployed, and lives alone and has poor social support system. MENTAL STATUS EXAMINATION Middle-aged white male who was casually dressed with fair personal hygiene, appears to be in no acute distress or discomfort. He was awake and alert on interaction with intact orientation to time, place, and person. His mood was anxious and depressed with a congruent affect. His speech was slow and restricted in content. His thought processes were disorganized with some looseness of associations and suicidal ideations. His insight and judgment remain significantly impaired. DIAGNOSTIC IMPRESSION Psychiatric: Major depressive disorder, recurrent, moderate, without psychotic features; opioid dependence, moderate and acute withdrawals; methamphetamine dependence, moderate; cocaine abuse, moderate; benzodiazepine abuse, moderate. Medical: Diabetes mellitus and gastroesophageal reflux disease. Stressors: Moderate psychosocial stressors. TREATMENT PLAN 1. The patient has presented with history of substance abuse and mood disorder, and has been decompensating and will need inpatient hospitalization for safety and stabilization. We will start him back on his home medications. We will adjust the medications and monitor response. 2. Supportive therapy was provided to the patient. ESTIMATED LENGTH OF STAY 5 to 7 days. ABILITY TO HELP SELF Limited. WILLINGNESS TO HELP SELF The patient appears to be willing to help self. STRENGTHS 1. Communicative. 2. Cooperative. PROBLEMS 1. Chronic dysphoric symptoms. 2. Chronic chemical dependency. 3. Poor social support system. DISCHARGE CRITERIA This will be contingent upon the patient's ability to go through detox without having any significant withdrawal symptoms as well as his ability to stay safe to himself, particularly after discharge from the hospital. Unit #: [id number] #: [id number] Patient: SIMONA DINERO Dictated by... Didi Estrada/chandler TD: 06/08/2016 07:09 JOB #: [id number] PSYCHIATRIC ASSESSMENT Page 1 of 1 X Shanon Gómez MD X PSYCHIATRIC ASSESSMENT
--- NOTE | ~2016-06-07 | PN ---
Unit #: [id number] #: [id number] Patient: RICHIE DINERO [id number] [facility] [address] [place] [address] [id number] I MR#: [id number] NAME: RICHIE DINERO. ROOM: P207 Age: 56 Sex: M Admission Date: 06/07/2016 : 1960 Attending Physician: Shanon Gómez M.D. Admitting Physician: Shanon Gómez M.D. Primary Care Physician: Primary Care Physician Melania ROGEL PROGRESS NOTES DATE 06/11/2016 DISCUSSION Richie Dinero is a 56-year-old male seen on 06/11/2016. The patient interviewed, chart reviewed. Obtained information from nursing staff. The patient continues to report feeling sad depressed flat affect. Reported pain in his back. The patient was seclusive isolative, guarded. Vital signs stable 98.1, 71, 83/53. Complete review of systems unremarkable. MENTAL STATUS EXAMINATION General appearance, the patient dressed in hospital attire. Attention span and concentration poor. Oriented to place and person. Mood and affect sad, dysphoric. Speech monotone. Thought process concrete. The patient denied any thoughts of harming self or others. Recent and remote memory fair. Insight and judgement fair to slightly impaired. DIAGNOSES Mood disorder NOS ASSESSMENT/PLAN Advise to continue with current medication and therapeutic protocol. If needed consider further adjustment of medication. Dictated by... Didi Monterroso/lucille TD: 06/14/2016 03:51 JOB #: [id number] Unit #: [id number] #: [id number] Patient: RICHIE DINERO [facility] PROGRESS NOTES Page 1 of 1 X Kilo Castañeda MD PROGRESS NOTE
--- NOTE | ~2016-06-07 | HP ---
Unit #: [id number] #: [id number] Patient: RICHIE DINERO [id number] [facility] [address] [place] [address] [id number] MR#: [id number] NAME: RICHIE DINERO. ROOM: P207 Age: 56 Sex: M Admission Date: 06/07/2016 : 1960 Attending Physician: Shanon Gómez M.D. Admitting Physician: Shanon Gómez M.D. Primary Care Physician: Primary Care Physician No HISTORY AND PHYSICAL Richie is a 56 year old admitted to [address] [place] [address] because of his polysubstance abuse which includes benzodiazepines and IV methamphetamine. He was just discharged from [facility] where he was admitted after being found unresponsive. Patient was seen and H and P dated 06/03/16 was reviewed. Please see H and P dated 06/03/16 from [facility]. We will continue Levaquin for newly diagnosed aspiration pneumonia. Dictated by... Tasha Adan P.A.-C. for Didi Cano/jese TD: 06/08/2016 20:28 JOB #: [id number] HISTORY AND PHYSICAL Page 1 of 1 X Tasha Adan HISTORY AND PHYSICAL
[2016-06-08 10:04] LABS: BASOPHIL# 0.1 X10e3 (0-0.3); BASOPHIL% 0.8 % (0-2.5); EOSINOPHIL# 0.1 X10e3 (0-0.7); EOSINOPHIL% 1.1 % (0.0-7.0); HEMOGLOBIN 12.8 gm/dL (13.0-16.0); LYMPHOCYTE# 1.9 X10e3 (1.0-3.5); LYMPHOCYTE% 22.6 % (17.0-45.0); MEAN CELL VOLUME 90.9 FL (83-96); MEAN CORPUSCULAR HEMOGLOBIN 29.9 PG (28-34); MEAN CORPUSCULAR HGB CONC 32.9 g/dL (30-36); MEAN PLATELET VOLUME 7.6 FL (6.5-11.5); MONOCYTE# 0.8 X10e3 (0-1.0); MONOCYTE% 9.8 % (3.0-12.0); NEUTROPHIL# 5.5 X10e3 (1.5-7.1); NEUTROPHIL% 65.7 % (40-75); PLATELET COUNT 269 X10e3 (140-420); RED BLOOD COUNT 4.29 X10e (3.90-5.60); RED CELL DISTRIBUTION WIDTH 13.5 % (11.0-15.5); WHITE BLOOD COUNT 8.3 X10e3 (4.0-10.5)
[2016-06-08 10:08] LABS: DIFF IND NO
[2016-06-08 10:21] LABS: THYROID STIMULATING HORMONE 1.69 uIU/ml (0.34-5.60)
[2016-06-08 10:22] LABS: ALBUMIN SERUM 3.6 g/dL (3.5-5.0); BILIRUBIN,TOTAL 0.5 mg/dL (0.2-2.0); BUN/CREATININE RATIO 14.28; CREATININE SERUM 0.7 mg/dL (0.6-1.4); POTASSIUM 4.6 mmol/L (3.5-5.1)
[2016-06-08 10:28] LABS: FREE THYROXIN (T4) 0.64 ng/dL (0.58-1.64)
[2016-06-08 10:31] LABS: URINE APPEARANCE CLEAR; URINE BILIRUBIN NEG (NEG); URINE BLOOD NEG (NEG); URINE COLOR YELLOW; URINE GLUCOSE NEG (NEG); URINE KETONE NEG (NEG); URINE LEUKOCYTE ESTERASE NEG (NEG); URINE NITRATE NEG (NEG); URINE PH 7.5 (5-8); URINE PROTEIN NEG (NEG); URINE SPECIFIC GRAVITY 1.006 (1.003-1.035); URINE UROBILINOGEN 0.2 MG/DL (NEG)
[2016-06-08 10:46] LABS: AMPHETAMINE NEG (NEG); BARBITURATES NEG (NEG); BENZODIAZEPINES POS (NEG); COCAINE NEG (NEG); MARIJUANA NEG (NEG); OPIATES NEG (NEG); TRICYCLIC ANTIDEPRESSANTS NEG (NEG); U METHADONE NEG (NEG)
== END 2016-06-13 10:44 | disposition home or self-care (01) | DRG 885 ==
LOC: P2S 23:28
PROVIDERS: Psychiatry & Neurology Psychiatry
PROC: HZ2ZZZZ Detoxification Services for Substance Abuse Treatment (ICD-10-PCS; principal; 2016-06-07)
DX: F33.1 Major depressive disorder, recurrent, moderate (principal); F14.20 Cocaine dependence, uncomplicated; F11.23 Opioid dependence with withdrawal; F15.20 Other stimulant dependence, uncomplicated; F13.10 Sedative, hypnotic or anxiolytic abuse, uncomplicated; E11.9 Type 2 diabetes mellitus without complications; K21.9 Gastro-esophageal reflux disease without esophagitis; F39 Unspecified mood [affective] disorder
CPT/HCPCS: 80053; 80307; 81003; 82947; 83036; 84439; 84443; 85025; 86592

== ENCOUNTER 2016-07-04 15:08 | Inpatient (IN) | payer OTHER ==
--- NOTE | ~2016-07-04 | PN ---
Unit #: [id number] #: [id number] Patient: SIMONA CABRERA [id number] [facility] [address] [place] [address] [id number] I MR#: [id number] NAME: SIMONA CABRERA. ROOM: P116 Age: 56 Sex: M Admission Date: 07/04/2016 : 1960 Attending Physician: Shanon Gómez M.D. Admitting Physician: Shanon Gómez M.D. Primary Care Physician: Janene Doctor Not In System [facility] PROGRESS NOTES DATE July 09, 2016 DISCUSSION Mr. cabrera is a 56-year-old white male, who was seen today and chart was reviewed and the case was discussed with the staff. He reports still feeling a rage inside him and despite adjusting to the medications, still has been showing some anger, agitation, irritability, and possibly wanting to hurt himself and hurt others. MENTAL STATUS EXAMINATION Middle-aged white male, who was casually dressed with fair personal hygiene and appears to be in no acute distress or discomfort. He was awake and alert on interaction with intact orientation. His mood is anxious with a congruent affect. He denies any suicidal or homicidal ideations, and also denies any auditory or visual hallucinations. His insight and judgment remain slightly impaired. TREATMENT PLAN 1. We will continue him on his current medications and treatment protocol, and will monitor his response to the medications, and make further adjustments as needed. 2. We will continue to followup. Dictated by... Didi Estrada/fili TD: 07/11/2016 05:41 JOB #: [id number] Unit #: [id number] #: [id number] Patient: SIMONA CABRERA PROGRESS NOTES Page 1 of 1 X Shanon Gómez MD PROGRESS NOTE
--- NOTE | ~2016-07-04 | PN ---
Unit #: [id number] #: [id number] Patient: SIMONA DINERO [id number] [facility] [address] [place] [address] [id number] I MR#: [id number] NAME: SIMONA DINERO. ROOM: P202 Age: 56 Sex: M Admission Date: 07/04/2016 : 1960 Attending Physician: Shanon Gómez M.D. Admitting Physician: Shanon Gómez M.D. Primary Care Physician: Janene Doctor Not In System [facility] PROGRESS NOTES DATE OF SERVICE 07/05/2016 DISCUSSION Mr. Dinero is a 56-year-old white male with mood disorder and substance abuse and dependence who was seen today. Chart was reviewed and case was discussed with staff. He has been anxious, withdrawn, depressed, and rather seclusive to himself. Meanwhile, he has been cooperative with the treatment recommendations and has been taking the medications and tolerating them fairly well with no reported side effects. MENTAL STATUS EXAMINATION Middle-aged white male who is casually dressed with fair personal hygiene, appears to be in no acute distress or discomfort. He was awake and alert on interaction with intact orientation. His mood is anxious and depressed with congruent affect. His speech is slow and goal-directed. He reports having suicidal ideations but denies any homicidal ideations and also denies any auditory or visual hallucinations. His insight and judgment remain slightly impaired. TREATMENT PLAN 1. We will continue him on him current medications and treatment protocol. We will monitor his response to the medications and make further adjustments as needed. 2. We will continue to follow up. Dictated by... Didi Estrada/monet TD: 07/05/2016 14:47 JOB #: [id number] Unit #: [id number] #: [id number] Patient: SIMONA DINERO [facility]ED WITH [facility] PROGRESS NOTES Page 1 of 1 X Shanon Gómez MD PROGRESS NOTE
--- NOTE | ~2016-07-04 | PN ---
Unit #: [id number] #: [id number] Patient: SIMONA DINERO [id number] [facility] [address] [place] [address] [id number] MR#: [id number] NAME: SIMONA DINERO. ROOM: P116 Age: 56 Sex: M Admission Date: 07/04/2016 : 1960 Attending Physician: Shanon Gómez M.D. Admitting Physician: Shanon Gómez M.D. Primary Care Physician: Generic Doctor Not In System [facility] PROGRESS NOTES DATE 07/07/2016 DISCUSSION Mr. Dinero is a 56-year-old, white male who was seen today and chart was reviewed and case was discussed with the staff. He has been agitated and irritable and had a very rough day yesterday with violent outburst, suicidal thoughts threatening to hurt himself and then he started getting physically aggressive and was threatening to come behind the nursing staff and get the nursing staff and p.r.n. medications were given and he ended up in seclusive and later in restraints to continue his aggressiveness, agitation, aggression, hostility, impulsivity and depressive symptoms. Also, has been voicing thoughts of wanting to kill himself. As such, we will maintain him on his current level of precaution. We will monitor his response and make further adjustments as needed. Dictated by... Didi Estrada/lucille TD: 07/09/2016 22:10 JOB #: [id number] [facility] PROGRESS NOTES Page 1 of 1 X Shanon Gómez MD PROGRESS NOTE
--- NOTE | ~2016-07-04 | PN ---
Unit #: [id number] #: [id number] Patient: SIMONA DINERO [id number] [facility] [address] [place] [address] [id number] I MR#: [id number] NAME: SIMONA DINERO. ROOM: P202 Age: 56 Sex: M Admission Date: 07/04/2016 : 1960 Attending Physician: Shanon Gómez M.D. Admitting Physician: Shanon Gómez M.D. Primary Care Physician: Janene Doctor Not In System [facility] PROGRESS NOTES DATE 07/06/2016 DISCUSSION Mr. Dinero is a 56-year-old, white male with mood disorder and substance abuse who was seen today and chart was reviewed and case was discussed with the staff. He remains anxious, withdrawn, depressed and rather seclusive to himself. Meanwhile, he has been cooperative with treatment recommendations. He has been taking medications and tolerating them fairly well with no reported side effects. MENTAL STATUS EXAM Middle-aged white male who was casually dressed with fair personal hygiene, appears to be in no acute distress or discomfort. He was awake and alert on interaction with intact orientation. His mood was anxious and depressed with congruent affect. His speech was slow and goal directed. He denies any suicidal or homicidal ideation. Also, denies any auditory or visual hallucinations. His insight and judgement remains slightly impaired. TREATMENT PLAN 1. We will continue him on his current medications and treatment protocol. We will monitor his response and make further adjustments as needed. 2. We will continue to follow up. Dictated by... Didi Estrada/lucille TD: 07/07/2016 03:40 JOB #: [id number] Unit #: [id number] #: [id number] Patient: SIMONA DINERO [facility] PROGRESS NOTES Page 1 of 1 X Shanon Gómez MD PROGRESS NOTE
--- NOTE | ~2016-07-04 | PN ---
Unit #: [id number] #: [id number] Patient: SIMONA DINERO [id number] [facility] [address] [place] [address] [id number] I MR#: [id number] NAME: SIMONA DINERO. ROOM: 16 Age: 56 Sex: M Admission Date: 07/04/2016 : 1960 Attending Physician: Shanon Gómez M.D. Admitting Physician: Shanon Gómez M.D. Primary Care Physician: Janene Doctor Not In System [facility] PROGRESS NOTES DATE OF SERVICE: 07/08/2016 SUBJECTIVE Mr. Dinero is a 56-year-old white male who was seen today and chart was reviewed, and case was discussed with the staff. The patient was agitated and irritable, and the nurse stated yesterday he was with active hallucinations, and violent and aggressive, hostile and also engaging in self-harming behavior and p.r.n. medication had been given. He has been transferred to a different floor with private camera monitoring in the room. Meanwhile, he has been taking the medications and tolerating them fairly well, but has not really shown any response to the medication. MENTAL STATUS EXAMINATION Middle-aged white male who was casually dressed with fair personal hygiene, appears to be in no acute distress or discomfort. He was awake and alert on interaction with intact orientation. His mood was anxious with a congruent affect. He denies any suicidal or homicidal ideations, and also denies any auditory visual hallucinations. His insight and judgment remain slightly impaired. TREATMENT PLAN 1. We will continue him on his current medications and treatment protocol. We will monitor his response to the medications and make further adjustments as needed. 2. We will continue to follow up. Dictated by... Shanon Gómez M.D. IAA/modl TD: 07/09/2016 21:12 JOB #: [id number] Unit #: [id number] #: [id number] Patient: SIMONA DINERO LOCATED WITHIN [facility] PROGRESS NOTES Page 1 of 1 X Shanon Gómez MD X PROGRESS NOTE
--- NOTE | ~2016-07-04 | PA ---
Unit #: [id number] #: [id number] Patient: SIMONA DINERO [id number] [place] [address] [id number] I MR#: [id number] NAME: SIMONA DINERO. ROOM: P202 Age: 56 Sex: M Admission Date: 07/04/2016 : 1960 Date of Assessment: 07/04/2016 Attending Physician: Shanon Gómez M.D. Admitting Physician: Shanon Gómez M.D. Primary Care Physician: Generic Doctor Not In System PSYCHIATRIC ASSESSMENT DATE OF SERVICE 07/04/2016. IDENTIFYING DATA Mr. Dinero is a 56-year-old single white male, who is a resident of [place], [place], and is known to us from previous encounter, and was self-referred to the hospital on a voluntary basis. CHIEF COMPLAINT "Everything with family and a lot of things going on." HISTORY OF PRESENT ILLNESS Mr. Dinero is a 56-year-old white male with history of substance abuse and mood disorder, who was self-referred to the hospital, reporting increasing depression and suicidal ideation and substance abuse issues and reports decreased sleep and appetite, poor energy level, increasing isolation as he stated "I can't deal with anything family problems." He reports having suicidal ideation with plan to overdose on heroin and his last use of heroin was a month ago and reports overdosing a month ago and reports using methamphetamine a few days ago and using 50 dollars worth of methamphetamine and also reports using Klonopin and Xanax, "whatever I can find on the streets." He reports using Klonopin 3 to 5 pills today and reports having thoughts of hurting his past roommate and stated "beat him until almost he dies." He was seen to be extremely agitated, irritable, angry and aggressive and was seen to be danger to self as well as others and therefore, recommendation for inpatient level of care for safety and stabilization was made and the patient was stepped up to the inpatient unit. SUBSTANCE ABUSE HISTORY The patient reports extensive history of substance abuse and dependence including alcohol, cannabis, cocaine, acid, opioids, and amphetamines, and benzodiazepines, and currently, it appears that opioids and benzodiazepines appears to be his drug of choice. PAST PSYCHIATRIC HISTORY The patient has had history of inpatient psychiatric hospitalization at [facility]. Review of the medical records indicate that he is supposed to be on Wellbutrin, Zoloft, and Seroquel, but has been noncompliant with medication and as such, has been decompensating. PAST MEDICAL HISTORY Unit #: [id number] #: [id number] Patient: SIMONA DINERO Diabetes mellitus. ALLERGIES Morphine. PERSONAL AND SOCIAL HISTORY A 56-year-old white male, who reports that he is single, unemployed, and lives by himself and has fairly decent social support system. MENTAL STATUS EXAMINATION Middle-aged white male who was casually dressed with fair personal hygiene, appears to be in no acute distress or discomfort. He was awake and alert on interaction with intact orientation to time, place, and person. His mood was anxious and depressed with a congruent affect. His speech was slow and restricted in content. His thought processes were disorganized with some looseness of associations and suicidal ideations. His insight and judgment remain significantly impaired. DIAGNOSTIC IMPRESSION Psychiatric: Major depressive disorder, recurrent, moderate, without psychotic features; opioid dependence, moderate and acute withdrawals; benzodiazepine dependence, moderate and acute withdrawals. Medical: Diabetes mellitus. Stressors: Moderate psychosocial stressors. TREATMENT PLAN 1. The patient has presented with history of mood disorder and substance abuse and has been decompensating and will need inpatient hospitalization for safety and stabilization. We will start him back on his home medications. We will adjust the medications and monitor response. 2. Supportive therapy was provided to the patient. 3. Safe, structured, and nourishing environment will be provided. ESTIMATED LENGTH OF STAY 4 to 5 days. ABILITY TO HELP SELF Limited. WILLINGNESS TO HELP SELF The patient appears to be willing to help self. STRENGTHS 1. Communicative. 2. Cooperative. PROBLEMS 1. Chronic dysphoric symptoms. 2. Chronic chemical dependency. 3. Poor social support system. DISCHARGE CRITERIA This will be contingent upon the patient's ability to show resolution of his depression and anxiety and his ability to stay safe to himself, particularly after discharge from the hospital. Dictated by... Unit #: [id number] #: [id number] Patient: SIMONA DINERO Didi Estrada/chandler TD: 07/05/2016 07:10 JOB #: [id number] PSYCHIATRIC ASSESSMENT Page 1 of 1 X Shanon Gómez MD PSYCHIATRIC ASSESSMENT
--- NOTE | ~2016-07-04 | HP ---
Unit #: [id number] #: [id number] Patient: RICHIE DINERO [id number] [place] [address] [id number] MR#: [id number] NAME: RICHIE DINERO. ROOM: P202 Age: 56 Sex: M Admission Date: 07/04/2016 : 1960 Attending Physician: Shanon Gómez M.D. Admitting Physician: Shanon Gómez M.D. Primary Care Physician: Janene Doctor Not In System HISTORY AND PHYSICAL HISTORY OF PRESENT ILLNESS Richie is a 56 year old admitted to [address] [place] [address] because of his continued polysubstance abuse which includes alcohol, benzodiazepines and IV methamphetamine. PAST MEDICAL HISTORY 1. History of illicit substance abuse to include IV drugs 2. Diabetes mellitus 3. GERD 4. Obesity PAST SURGICAL HISTORY 1. Hemorrhoidectomy 2. Right knee 3. Umbilical hernia repair ALLERGIES Morphine. SOCIAL HISTORY Smokes one pack per day. Drinks a fifth of liquor on a daily basis. Has a history of illicit substance abuse. FAMILY HISTORY Medically noncontributory. REVIEW OF SYSTEMS CONSTITUTIONAL: No fever or chills. HEENT: Denies any sore throat, ear pain or runny nose. CARDIOVASCULAR: Denies chest pain, irregular heart rhythm or palpitations. CHEST: Denies shortness of breath or cough. No hemoptysis. GASTROINTESTINAL: Denies nausea, vomiting, diarrhea or chronic constipation. ENDOCRINE: Denies history of increased thirst or urination. No recent significant weight loss or gain. GENITOURINARY: Denies dysuria, frequency, or hematuria. SKIN: Denies any rashes. HEMATOLOGIC: Denies history of increased bleeding or bruising. MUSCULOSKELETAL: Denies any hot, swollen joints. No generalized muscle pain. NEUROLOGIC: Denies problems with vision or speech. No frequent, severe headaches. No numbness, tingling or weakness in any extremities. Denies Unit #: [id number] #: [id number] Patient: RICHIE DINERO loss of bladder or bowel control. CURRENT MEDICATIONS 1. Detox protocol 2. Glucophage 500 mg b.i.d. 3. Seroquel 200 mg q day 4. Protonix 40 mg q day 5. Zoloft 200 mg q day PHYSICAL EXAMINATION GENERAL: Alert, well-nourished, in no apparent distress. VITAL SIGNS: Blood pressure 110/78, heart rate 80, respirations 16, temperature 98.6. WEIGHT: 180 pounds. HEIGHT: 5'11". SKIN: Warm and dry without rash or lesion. HEENT: Normocephalic. TMs not viewed. Oral and nasal passages clear. Conjunctivae clear. Pupils equal, round and reactive to light and accommodation. Extraocular movements intact. NECK: Supple without lymphadenopathy or thyromegaly. HEART: Regular rate and rhythm without murmur. LUNGS: Clear. ABDOMEN: Soft, nontender. : Not done. EXTREMITIES: No evidence of cyanosis, clubbing or edema. Moves all extremities without focal deficit. NEUROLOGICAL: Grossly within normal limits. Cranial Nerves: II: Visual kat are intact. III, IV AND : Extraocular movements are intact. Pupils are equal, round and reactive to light. V: Facial sensation is grossly normal. VII: Facial movements and expression are normal. VIII: Auditory acuity grossly intact. IX, X: Uvula is midline. Phonation is normal. XI: Patient shrugs shoulders and turns head normally. XII: Tongue protrudes in the midline. Sensory and Motor Function: Sensory and motor sensation is grossly normal. Motor: moves all extremities well. Coordination: Gait is normal. Deep Tendon Reflexes: Intact. IMPRESSION Psychiatric admission RECOMMENDATIONS PSYCHIATRIC: Per psychiatrist. MEDICAL: I see no contraindications to participating in facility's activities. MEDICAL PROGNOSIS Good. MEDICAL CONDITION Stable. Dictated by... Unit #: [id number] #: [id number] Patient: RICHIE DINERO Chapin Adan, P.A.-C. for Didi Cano/lucille TD: 07/06/2016 00:21 JOB #: [id number] HISTORY AND PHYSICAL Page 1 of 1 X Tasha Adan HISTORY AND PHYSICAL
--- NOTE | ~2016-07-04 | PN ---
Unit #: [id number] #: [id number] Patient: SIMONA DINERO [id number] [facility] [address] [place] [address] [id number] I MR#: [id number] NAME: SIMONA DINERO. ROOM: P131 Age: 56 Sex: M Admission Date: 07/04/2016 : 1960 Attending Physician: Shanon Gómez M.D. Admitting Physician: Shanon Gómez M.D. Primary Care Physician: Janene Doctor Not In System [facility] PROGRESS NOTES DATE OF SERVICE 07/13/2016 DISCUSSION Mr. Dinero is a 56-year-old white male who was seen today. Chart was reviewed and case was discussed with the staff. He has been anxious and withdrawn though has not shown any agitation, irritability, or behavioral problems and has been cooperative with the treatment recommendations and has been taking the medications and tolerating them fairly well with no reported side effects. MENTAL STATUS EXAMINATION A middle-aged white male who is casually dressed with fair personal hygiene, appears to be in no acute distress or discomfort. He was awake and alert with impaired attention and concentration. His mood is anxious with congruent affect. He denies any suicidal or homicidal ideations and also denies any auditory or visual hallucinations. His insight and judgment remain slightly impaired. TREATMENT PLAN 1. We will continue him on his current medications and treatment protocol. We will monitor his response to the medications and make further adjustments as needed. 2. We will continue to follow up. Dictated by... Shanon Gómez M.D. IAA/bzg TD: 07/13/2016 09:18 JOB #: [id number] Unit #: [id number] #: [id number] Patient: SIMONA DINERO [facility] PROGRESS NOTES Page 1 of 1 X Shanon Gómez MD PROGRESS NOTE
--- NOTE | ~2016-07-04 | PN ---
Unit #: [id number] #: [id number] Patient: SIMONA DINERO [id number] [facility] [address] [place] [address] [id number] MR#: [id number] NAME: SIMONA DINERO. ROOM: P116 Age: 56 Sex: M Admission Date: 07/04/2016 : 1960 Attending Physician: Shanon Gómez M.D. Admitting Physician: Shanon Gómez M.D. Primary Care Physician: Janene Doctor Not In System [facility] PROGRESS NOTES DATE OF SERVICE 07/10/2016 DISCUSSION Mr. Dinero is a 56-year-old white male who was seen today. Chart was reviewed and case was discussed with the staff. He has been anxious, withdrawn, and rather seclusive to himself. Meanwhile, he has been cooperative with the treatment recommendation and has been taking the medications and tolerating them fairly well with no reported side effects. MENTAL STATUS EXAMINATION Middle-aged white male who is casually dressed with fair personal hygiene, appears to be in no acute distress or discomfort. He was awake and alert with impaired attention and concentration. His mood is anxious and depressed with congruent affect. He reports having suicidal ideations and auditory hallucinations. His insight and judgment remain slightly impaired. TREATMENT PLAN 1. We will continue him on his current level of suicide precautions as the patient was trying to use his socks to make up a noose yesterday and has been reporting increasing agitation and aggression, and as such we will adjust the medications and monitor response. 2. We will continue to follow up. Dictated by... Didi Estrada/monet TD: 07/11/2016 09:26 JOB #: [id number] Unit #: [id number] #: [id number] [facility]: [facility] PROGRESS NOTES Page 1 of 1 X Shanon Gómez MD PROGRESS NOTE
--- NOTE | ~2016-07-04 | PN ---
Unit #: [id number] #: [id number] Patient: SIMONA DINERO [id number] [facility] [address] [place] [address] [id number] MR#: [id number] NAME: SIMONA DINERO. ROOM: P131 Age: 56 Sex: M Admission Date: 07/04/2016 : 1960 Attending Physician: Shanon Gómez M.D. Admitting Physician: Shanon Gómez M.D. Primary Care Physician: Janene Doctor Not In System [facility] PROGRESS NOTES DATE 07/12/2016 DISCUSSION Mr. Dinero is a 56-year-old white male who was seen today and chart was reviewed and case was discussed with the staff. He has been anxious, withdrawn and rather seclusive to himself. Meanwhile, he has been doing somewhat better on his agitation and aggression and has been compliant with the treatment recommendations and has been taking the medications and tolerating them fairly well with no reported side effects. MENTAL STATUS EXAMINATION Middle-aged white male who was casually dressed with fair personal hygiene and appears to be in no acute distress or discomfort. He was awake and alert on interactions with intact orientation. His mood was anxious with congruent affect. He denies any suicidal or homicidal ideations and also denies any auditory or visual hallucinations. His insight and judgement remains slightly impaired. TREATMENT PLAN 1. Will continue on his current medications and treatment protocol. Will monitor his response to the medications and make further adjustments as needed. 2. Will continue to follow up. Dictated by... Didi Estrada/jese TD: 07/12/2016 15:04 JOB #: [id number] Unit #: [id number] #: [id number] Patient: [facility] DINERO [facility] PROGRESS NOTES Page 1 of 1 X Shanon Gómez MD PROGRESS NOTE
--- NOTE | ~2016-07-04 | PN ---
Unit #: [id number] #: [id number] Patient: SIMONA DINERO [id number] [facility] [address] [place] [address] [id number] I MR#: [id number] NAME: SIMONA DINERO. ROOM: P116 Age: 56 Sex: M Admission Date: 07/04/2016 : 1960 Attending Physician: Shanon Gómez M.D. Admitting Physician: Shanon Gómez M.D. Primary Care Physician: Janene Doctor Not In System [facility] PROGRESS NOTES DATE 07/11/2016 DISCUSSION Mr. Dinero is a 56-year-old white male who was seen today and chart was reviewed and case was discussed with the staff who reports patient had better day yesterday for the first time after his medications were increased including the Seroquel which was titrated up and then Depakote was added and Thorazine p.r.n. was utilized as well. He has been taking medications and tolerating them fairly well with no reported side effects. MENTAL STATUS EXAMINATION Middle-aged white male who was casually dressed with fair personal hygiene and appears to be in no acute distress or discomfort. He was awake and alert with impaired attention and concentration. His mood was anxious with congruent affect. He denies any suicidal or homicidal ideation. His thought processes were disorganized with some looseness of associations and paranoid ideations. His insight and judgement remains significantly impaired. TREATMENT PLAN 1. Will continue on his current medications and treatment protocol. Will monitor response to medication and make further adjustments as needed. 2. Will continue to followup. Dictated by... Didi Estrada/jese TD: 07/11/2016 23:15 JOB #: [id number] Unit #: [id number] #: [id number] Patient: SIMONA DINERO [facility] PROGRESS NOTES Page 1 of 1 X Shanon Gómez MD PROGRESS NOTE
[2016-07-05 09:49] LABS: BASOPHIL# 0.1 X10e3 (0-0.3); BASOPHIL% 1.4 % (0-2.5); EOSINOPHIL# 0.1 X10e3 (0-0.7); EOSINOPHIL% 2.6 % (0.0-7.0); HEMATOCRIT 40.6 % (38.0-50.0); HEMOGLOBIN 13.7 gm/dL (13.0-16.0); LYMPHOCYTE# 1.9 X10e3 (1.0-3.5); LYMPHOCYTE% 37.8 % (17.0-45.0); MEAN CELL VOLUME 89.1 FL (83-96); MEAN CORPUSCULAR HEMOGLOBIN 30.1 PG (28-34); MEAN CORPUSCULAR HGB CONC 33.7 g/dL (30-36); MEAN PLATELET VOLUME 8.2 FL (6.5-11.5); MONOCYTE# 0.5 X10e3 (0-1.0); MONOCYTE% 10.5 % (3.0-12.0); NEUTROPHIL# 2.5 X10e3 (1.5-7.1); NEUTROPHIL% 47.7 % (40-75); PLATELET COUNT 213 X10e3 (140-420); RED BLOOD COUNT 4.56 X10e (3.90-5.60); RED CELL DISTRIBUTION WIDTH 13.4 % (11.0-15.5); WHITE BLOOD COUNT 5.2 X10e3 (4.0-10.5)
[2016-07-05 09:59] LABS: DIFF IND NO
[2016-07-05 10:05] LABS: ALBUMIN SERUM 3.9 g/dL (3.5-5.0); BILIRUBIN,TOTAL 0.2 mg/dL (0.2-2.0); BUN/CREATININE RATIO 17.77; CALCIUM SERUM 9.8 mg/dL (8.4-10.2); CREATININE SERUM 0.9 mg/dL (0.6-1.4); GLOM FILT RATE Estimated 96.5 mL/min (>60); POTASSIUM 3.8 mmol/L (3.5-5.1); PROTEIN TOTAL SERUM 6.7 g/dL (6.0-8.3)
[2016-07-06 10:01] LABS: URINE APPEARANCE CLEAR; URINE BILIRUBIN NEG (NEG); URINE BLOOD NEG (NEG); URINE COLOR YELLOW; URINE GLUCOSE NEG (NEG); URINE KETONE NEG (NEG); URINE LEUKOCYTE ESTERASE NEG (NEG); URINE NITRATE NEG (NEG); URINE PH 6.5 (5-8); URINE PROTEIN NEG (NEG); URINE SPECIFIC GRAVITY 1.023 (1.003-1.035); URINE UROBILINOGEN 0.2 MG/DL (NEG)
[2016-07-06 10:53] LABS: AMPHETAMINE POS (NEG); BARBITURATES NEG (NEG); BENZODIAZEPINES POS (NEG); COCAINE NEG (NEG); MARIJUANA NEG (NEG); OPIATES NEG (NEG); TRICYCLIC ANTIDEPRESSANTS POS (NEG); U METHADONE NEG (NEG)
== END 2016-07-14 09:20 | disposition home or self-care (01) | DRG 885 ==
LOC: P1S 17:10 → P2S 17:10 → P1S 07-07 21:02
PROVIDERS: Psychiatry & Neurology Psychiatry
PROC: HZ2ZZZZ Detoxification Services for Substance Abuse Treatment (ICD-10-PCS; principal; 2016-07-04)
DX: F33.1 Major depressive disorder, recurrent, moderate (principal); E11.9 Type 2 diabetes mellitus without complications; R45.851 Suicidal ideations; F11.23 Opioid dependence with withdrawal; F13.239 Sedative, hypnotic or anxiolytic dependence with withdrawal, unspecified; Z56.0 Unemployment, unspecified; F41.9 Anxiety disorder, unspecified; K21.9 Gastro-esophageal reflux disease without esophagitis; E66.9 Obesity, unspecified; Z88.5 Allergy status to narcotic agent
CPT/HCPCS: 80053; 80307; 81003; 82947; 85025; 86592; J3230

== ENCOUNTER 2016-07-17 13:00 | Inpatient (IN) | payer OTHER ==
--- NOTE | ~2016-07-17 | PN ---
Unit #: [id number] #: [id number] Patient: SIMONA DINERO [id number] [facility] [address] [place] [address] [id number] MR#: [id number] NAME: SIMONA DINERO. ROOM: P174 Age: 56 Sex: M Admission Date: 07/17/2016 : 1960 Attending Physician: Shanon Gómez M.D. Admitting Physician: Shanon Gómez M.D. Primary Care Physician: Primary Care Physician Melania ROGEL PROGRESS NOTES DATE OF SERVICE: 07/21/2016 SUBJECTIVE Mr. Dinero is a 56-year-old white male who was seen today and chart was reviewed and case was discussed with the staff. He has been anxious, withdrawn, and rather seclusive to himself. Meanwhile, he has been complaining of persistent depression and anxiety with feelings of hopelessness, though he has been taking the medications and tolerating them fairly well. MENTAL STATUS EXAMINATION Middle-aged white male who was casually dressed with fair personal hygiene, appears to be in no acute distress or discomfort. He was awake and alert on interaction with intact orientation. His mood was anxious with a congruent affect. He reports having suicidal ideation, but denies any homicidal ideations. His insight and judgment remain slightly impaired. TREATMENT PLAN 1. We will continue him on his current treatment protocol. We will monitor his response and make further adjustments as needed. 2. We will continue to follow up. Dictated by... Didi Estrada/chandler TD: 07/21/2016 07:48 JOB #: [id number] [facility] PROGRESS NOTES Page 1 of 1 X Shanon Gómez MD PROGRESS NOTE
--- NOTE | ~2016-07-17 | PN ---
Unit #: [id number] #: [id number] Patient: SIMONA DINERO [id number] [facility] [address] [place] [address] [id number] I MR#: [id number] NAME: SIMONA DINERO. ROOM: [facility] Age: 56 Sex: M Admission Date: 07/17/2016 : 1960 Attending Physician: Shanon Gómez M.D. Admitting Physician: Shanon Gómez M.D. Primary Care Physician: Primary Care Physician Melania MORGAN NOTES DATE 07/18/2016 DISCUSSION Mr. Dinero is a 56-year-old, white male who was seen today and chart was reviewed and case was discussed with the staff. He has been anxious, withdrawn though has not shown any agitation, irritability and has been cooperative with treatment recommendations. He has been taking medications and tolerating them fairly well with no reported side effects. MENTAL STATUS EXAM Middle-aged white male who was casually dressed with fair personal hygiene, appears to be in no acute distress or discomfort. He was awake and alert on interaction with intact orientation. His mood was anxious with congruent affect. His speech was slow and goal directed. He denies any suicidal or homicidal ideation. Also, denies any auditory or visual hallucinations. His insight and judgement remains slightly impaired. TREATMENT PLAN 1. We will continue him on his current medications and treatment protocol. We will monitor his response to the medication and make further adjustments as needed. 2. We will continue to follow up. Dictated by... Didi Estrada/lucille TD: 07/18/2016 22:08 JOB #: [id number] Unit #: [id number] #: [id number] Patient: SIMONA DINERO JUAN F PROGRESS NOTES Page 1 of 1 X Shanon Gómez MD PROGRESS NOTE
--- NOTE | ~2016-07-17 | DS ---
Unit #: [id number] #: [id number] Patient: [facility]INERO [id number] [facility] [address] [place] [address] [id number] I MR#: [id number] NAME: SIMONA DINERO ROOM: 74 Age: 56 Sex: M Admission Date: 07/04/2016 : 1960 Discharge Date: 07/14/2016 Attending Physician: Shnaon Gómez M.D. DISCHARGE SUMMARY IDENTIFYING DATA Mr. Dinero is a 56-year-old single white male with mood disorder and substance abuse, who is known to us from previous encounter and was self-referred to the hospital. DISCHARGE DIAGNOSES Psychiatric: Major depressive disorder, recurrent, moderate, without psychotic features; alcohol dependence, moderate and acute withdrawals. Medical: Hypertension and history of substance abuse. Stressors: Moderate psychosocial stressors. HISTORY OF PRESENT ILLNESS Please see initial psychiatric evaluation for details. PAST PSYCHIATRIC HISTORY Please see initial psychiatric evaluation for details. PAST MEDICAL HISTORY Please see initial psychiatric evaluation for details. HOSPITAL COURSE The patient was admitted to the adult chemical dependency and psychiatric unit at [facility] and was oriented to the hospital environment. The patient was initiated and started back on his home medications. Medications were adjusted Detox Protocol medication and a combination of Depakote and Seroquel was used to stabilize his mood. He is complaining of persistent depression, anxiety, mood swings, irritability, and suicidal ideations, etc., with a prolonged course and medications were gradually titrated up and was able to complete the program without any complications and was willing to continue treatment on an outpatient basis and it was decided that he will be discharged home and will continue treatment on an outpatient basis. DISCHARGE CONDITION Stable. PROGNOSIS Fair. Dictated by... Shanon Gómez M.D. Unit #: [id number] #: [id number] Patient: SIMONA DINERO IAA/modl TD: 08/01/2016 23:21 JOB #: [id number] DISCHARGE SUMMARY Page 1 of 1 X Shanon Gómez MD X DISCHARGE SUMMARY
--- NOTE | ~2016-07-17 | A ---
[facility] Nutrition Therapy DATE: 07/20/16 Patient: SIMONA DINERO Physician: JEFF Address: [address] [place] [address] Room/Bed: [address], Zip: [place] [address] Admit Date: 07/17/16 Date of : [birth year] Height: 5 11 Weight: [phone] NUTRITIONAL ASSESSMENT: REASON: 1 point malnutrition risk score re: unintentional weight loss Admitting Dx: 56 y/o male admitted for detox, SI PMH: T2DM (non insulin dependent), GERD, PSA, depression, prior SI, colon polyps, chronic ETOH abuse (drinks ~a fifth of liquor daily), obesity, 1 ppd smoker Anthropometrics: Ht: 71", Wt: 177 lbs, BMI: 24 (normal), past weights: 180-197 lbs Mar-May 2016 Labs: No new labs; A1C 5.8 (WNL on 06/08/16), glucose WNL Meds: Glucophage, Milk of Mg, Mag-Al, PPI, psych meds noted Assessment: Chart reviewed, events noted. See reason for assessment, admitting dx and PMH as stated above. Patient has been unemployed for 6 months, drinks about a fifth of liquor daily, is non-compliant with medications and had recent admission to [facility] and [facility]. He is on a consistent carb diet due to hx of T2DM, however his last A1C checked in May of this year was normal and his blood glucose has been well controlled requiring no insuin or Accucheks. He is on Glucophage and has been compliant with taking his meds since admission. Reports a 90 lb weight loss in 1 year, however [facility] not [facility] back this far so I am unable to confirm this through past weights, which ranged from 180-197 lbs earlier this year indicating weight loss of approx. 3-20 lbs since earlier this year if weights are accurate. Said he had not eaten anything for 1.5 days prior to arrival, appetite has been fair since admission. PMH notes obesity, perhaps if he has lost this weight his type 2 diabetes is now essentially resolved. See recs below. Dx: Unintentional weight loss r/t drug/EOH abuse, depression AEB 1 point malnutrition risk score for reported 90 lb weight loss in 1 year. Intervention: Regular diet, continue HS snack Monitoring, Evaluation and Goals: 1. PO intake > 50% of meals. 2. Prevent further unintentional weight loss. Monitor: Per consult Recommendations: [facility] Nutrition Therapy DATE: 07/20/16 Patient: SIMONA DINERO Physician: JEFF Address: [address] [place] [address] Room/Bed: [address], Zip: [place] [address] Admit Date: 07/17/16 Date of : [birth year] Height: 5 11 Weight: [phone] 1. Suggest changing diet to regular, as the patient's A1C and glucose are WNL. Can continue HS diabetic snack. 2. If PO intake is < 50% of meals please order Ensure BID. 3. Continue vitamins. 4. Please weigh q 3 days for monitoring purposes. 5. Please consult dietitian with any further nutritional needs or call [phone]. Mild nutrition risk Respectfully, Tracey Shin RD, LD [facility] Nutrition[facility] Services [facility] cc: client file
--- NOTE | ~2016-07-17 | PN ---
Unit #: [id number] #: [id number] Patient: SIMONA DINERO [id number] [facility] [address] [place] [address] [id number] MR#: [id number] NAME: SIMONA DINERO. ROOM: P174 Age: 56 Sex: M Admission Date: 07/17/2016 : 1960 Attending Physician: Shanon Gómez M.D. Admitting Physician: Shanon Gómez M.D. Primary Care Physician: Primary Care Physician Melania ROGEL PROGRESS NOTES DATE 07/23/2016 DISCUSSION Mr. Dinero is a 56-year-old, white male who was seen today and chart was reviewed and case was discussed with the staff. He has been doing fairly well and reports improvement in his depression and anxiety and is planning to get discharged tomorrow and be able to go on a farm with one of the family members. MENTAL STATUS EXAM Middle-aged white male who was casually dressed with fair personal hygiene, appears to be in no acute distress or discomfort. He was awake and alert on interaction with intact orientation. His mood was anxious with congruent affect. He denies any suicidal or homicidal ideation. Also, denies any auditory or visual hallucinations. His insight and judgement remains slightly impaired. TREATMENT PLAN We will continue him on his current treatment protocol. We will monitor his response to the medication and make further adjustments as needed. Dictated by... Didi Estrada/lucille TD: 07/24/2016 04:19 JOB #: [id number] Unit #: [id number] #: [id number] Patient: SIMONA DINERO JUAN F PROGRESS NOTES Page 1 of 1 X Shanon Gómez MD PROGRESS NOTE
--- NOTE | ~2016-07-17 | DS ---
Unit #: [id number] #: [id number] [facility]: [facility] [id number] [facility] [address] [place] [address] [id number] MR#: [id number] NAME: SIMONA DINERO. ROOM: P174 Age: 56 Sex: M Admission Date: 07/17/2016 : 1960 Discharge Date: 07/24/2016 Attending Physician: Shanon Gómez M.D. Primary Care Physician: Primary Care Physician No DISCHARGE SUMMARY IDENTIFYING DATA Mr. Dinero is a 56-year-old single white male, who is a resident of [place], [place], and was just discharged from my care 3 days ago and was self-referred back to the hospital. DISCHARGE DIAGNOSES Psychiatric: Bipolar disorder, most recent episode depressed, recurrent, moderate, without psychotic features; methamphetamine dependence, moderate; and opioid dependence, moderate. Medical: Diabetes mellitus and gastroesophageal reflux disease. Stressors: Moderate psychosocial stressors. HISTORY OF PRESENT ILLNESS Please see initial psychiatric evaluation for details. PAST PSYCHIATRIC HISTORY Please see initial psychiatric evaluation for details. PAST MEDICAL HISTORY Please see initial psychiatric evaluation for details. HOSPITAL COURSE The patient was admitted to the adult chemical dependency and psychiatric unit at [facility] and was oriented to the hospital environment. Routine p.r.n. medications were initiated, and he was started back on his home medications and was placed on suicide watch as well. He was taking the medications regularly and was tolerating them fairly well and was able to show a decent and therapeutic response with improvement in depression and anxiety and was willing to continue treatment on an outpatient basis and as such, it was decided that he will be discharged home and will continue treatment on an outpatient basis. DISCHARGE MEDICATIONS Zoloft 200 mg a day for depression, trazodone 100 mg a day for depression, Seroquel 400 mg at bedtime for bipolar, Wellbutrin XL 300 mg in the morning for depression, Depakote 500 mg b.i.d. for bipolar, Protonix 40 mg a day for acid reflux, and Glucophage 500 mg b.i.d. for diabetes. DISCHARGE CONDITION Stable. PROGNOSIS Fair. Unit #: [id number] #: [id number] Patient: SIMONA DINERO Dictated by... Shanon Gómez M.D. IAA/modl TD: 07/24/2016 17:26 JOB #: [id number] DISCHARGE SUMMARY Page 1 of 1 X Shanon Gómez MD DISCHARGE SUMMARY
--- NOTE | ~2016-07-17 | PN ---
Unit #: [id number] #: [id number] Patient: SIMONA DINERO [id number] [facility] [address] [place] [address] [id number] MR#: [id number] NAME: SIMONA DINERO. ROOM: P174 Age: 56 Sex: M Admission Date: 07/17/2016 : 1960 Attending Physician: Shanon Gómez M.D. Admitting Physician: Didi Estrada PROGRESS NOTES DATE OF SERVICE: 07/22/2016 SUBJECTIVE Mr. Dinero is a 56-year-old white male, who was seen today and chart was reviewed and case was discussed with the staff. He was seen to be anxious, withdrawn, seclusive to himself, and reports persistent depressive symptoms. Meanwhile, he has been taking medications and was tolerating them fairly well with no reported side effects. MENTAL STATUS EXAMINATION Middle-aged white male, who was casually dressed with fair personal hygiene, and appears to be in no acute distress or discomfort. He was awake and alert on interaction with intact orientation. His mood was anxious with a congruent affect. He denies any suicidal or homicidal ideations and also denies any auditory or visual hallucinations. His insight and judgment remain slightly impaired. TREATMENT PLAN 1. We will continue him on his current treatment protocol. We will monitor his response to medications and make further adjustments as needed. 2. We will continue to follow up. Dictated by... Didi Estrada/chandler TD: 07/23/2016 16:08 JOB #: [id number] [facility] PROGRESS NOTES Page 1 of 1 X Shanon Gómez MD PROGRESS NOTE
--- NOTE | ~2016-07-17 | PN ---
Unit #: [id number] #: [id number] Patient: SIMONA DINERO [id number] [facility] [address] [place] [address] [id number] MR#: [id number] NAME: SIMONA DINERO. ROOM: P174 Age: 56 Sex: M Admission Date: 07/17/2016 : 1960 Attending Physician: Shanon Gómez M.D. Admitting Physician: Shanon Gómez M.D. Primary Care Physician: Primary Care Physician Melania ROGEL PROGRESS NOTES DATE OF SERVICE: 07/20/2016 SUBJECTIVE Mr. Dinero is a 56-year-old white male, who was seen today and chart was reviewed and case was discussed with the staff. He has been anxious, withdrawn, and rather seclusive to himself. Meanwhile, he has been cooperative with treatment recommendations and has been taking medications and tolerating them fairly well with no reported side effects. MENTAL STATUS EXAMINATION Middle-aged white male, who was casually dressed with fair personal hygiene, appears to be in no acute distress or discomfort. He was awake and alert on interaction with intact orientation. His mood was anxious and depressed with a congruent affect. He reports suicidal ideations, but denies any homicidal ideations. His insight and judgment remain slightly impaired. TREATMENT PLAN 1. We will continue him on his current treatment protocol. We will monitor his response to medications and make further adjustments as needed. 2. We will continue to follow up. Dictated by... Didi Estrada/chandler TD: 07/21/2016 08:32 JOB #: [id number] [facility] PROGRESS NOTES Page 1 of 1 X Shanon Gómez MD PROGRESS NOTE
--- NOTE | ~2016-07-17 | PN ---
Unit #: [id number] #: [id number] Patient: SIMONA DINERO [id number] [facility] [address] [place] [address] [id number] MR#: [id number] NAME: SIMONA DINERO. ROOM: P174 Age: 56 Sex: M Admission Date: 07/17/2016 : 1960 Attending Physician: Shanon Gómez M.D. Admitting Physician: Shanon Gómez M.D. Primary Care Physician: Primary Care Physician Melania MORGAN NOTES DATE OF SERVICE 07/19/2016 DISCUSSION Mr. Dinero is a 56-year-old white male who was seen today. Chart was reviewed and case was discussed with the staff. He has been anxious and withdrawn though has not shown any agitation, irritability, or behavioral problems and has been cooperative with the treatment recommendations and has been taking the medications and tolerating them fairly well with no reported side effects. MENTAL STATUS EXAMINATION Middle-aged white male who is casually dressed with fair personal hygiene, appears to be in no acute distress or discomfort. The patient was awake and alert on interaction with intact orientation. His mood is anxious with congruent affect. His speech is slow and restricted in content. He reports having suicidal ideation but denies any homicidal ideations and also denies any auditory or visual hallucinations. His insight and judgment remain slightly impaired. TREATMENT PLAN 1. We will continue him on his current medications and treatment protocol. We will monitor his response to the medications and make further adjustments as needed. 2. We will continue to follow up. Dictated by... Didi Estrada/monet TD: 07/20/2016 09:15 JOB #: [id number] Unit #: [id number] #: [id number] Patient: SIMONA DINERO JUAN F PROGRESS NOTES Page 1 of 1 X Shanon Gómez MD PROGRESS NOTE
--- NOTE | ~2016-07-17 | HP ---
Unit #: [id number] #: [id number] Patient: RICHIE DINERO [id number] [facility] [address] [place] [address] [id number] MR#: [id number] NAME: RICHIE DINERO. ROOM: [facility] Age: 56 Sex: M Admission Date: 07/17/2016 : 1960 Attending Physician: Shanon Gómez M.D. Admitting Physician: Shanon Gómez M.D. Primary Care Physician: Primary Care Physician No HISTORY AND PHYSICAL HISTORY OF PRESENT ILLNESS Richie is a 56 year old [address] to [facility] because of his continued polysubstance abuse. He was discharged from this facility after treatment for the same. The patient was seen and H and P dated 07/05/2016 was reviewed. This is current. No changes. Please see H and P dated 07/05/2016. Dictated by... Pattie ColbyAOh for Didi Cano/lucille TD: 07/18/2016 00:04 JOB #: [id number] HISTORY AND PHYSICAL Page 1 of X Tasha Adan HISTORY AND PHYSICAL
--- NOTE | ~2016-07-17 | PA ---
Unit #: [id number] #: [id number] Patient: SIMONA DINERO [id number] [facility] [address] [place] [address] [id number] Alonso MR#: [id number] NAME: SIMONA DINERO. ROOM: P177 Age: 56 Sex: M Admission Date: 07/17/2016 : 1960 Date of Assessment: 07/17/2016 Attending Physician: Shanon Gómez M.D. Admitting Physician: Shanon Gómez M.D. Primary Care Physician: Primary Care Physician No PSYCHIATRIC ASSESSMENT DATE OF SERVICE 07/17/2016. IDENTIFYING DATA Mr. Dinero is a 56-year-old single white male, who is a resident of [place], [place], and was just discharged from my care 3 days ago and was self-referred back to the hospital. CHIEF COMPLAINT "I'm suicidal and I have 3 plans." HISTORY OF PRESENT ILLNESS Mr. Dinero is a 56-year-old white male with history of substance abuse and mood disorder, who was just discharged from my care and brought himself back to the hospital stating that he relapsed on methamphetamine soon after he got out of the hospital and did not follow up with any treatment program stating "I let everybody down, go to some place in [place]. I did not get in the van to go, I thought I could do it no more and I was praying I would not that night. I started using my mom and dad and they passed a year ago and then I had a son and he was when she had him five years ago and I cannot remember much beyond that. My mom a year ago last week, my sister and they did not want to hear it, my best friend, I was going to if I did not come back. I keep using "until I could not use them no more." He was in the hospital for almost 11 days during previous hospitalization and was kept for an extended period of time, suggested that he can go straight from here to [facility], and transportation was arranged and a spot for him was reserved, but he apparently did not even get on the van and then he relapsed soon afterwards, and came to the hospital initially stating that he has relapsed on methamphetamine and I recommended he should come to the intensive outpatient treatment program. When that recommendation was given to him by the staff, he then changed his mind, and he stated that in that case he is suicidal and that he has 3 different plans, which he quickly made of. While he was in the assessment staff even though initially he came in and did not report having anything to do with suicidal ideations and appears that he has exhibiting malingering behavior trying to get into the hospital. When he comes to the hospital, it was noted that he just sleeps and eats and wants to have more and more medications, particularly those that have sedation in it and is constantly complaining that he is not sleeping even though he is sleeping throughout the day, and as such, it was decided that he will have to be put in a suicide watch, and no detox protocol will be initiated as he was just discharged 3 days ago. Unit #: [id number] #: [id number] Patient: SIMONA DINERO SUBSTANCE ABUSE HISTORY The patient reports history of experimentation abuse of alcohol, cannabis, cocaine, acid, opioids, and benzodiazepines, and currently, methamphetamine has been his drug of choice and reports that he has been using a gram of methamphetamine a day. PAST PSYCHIATRIC HISTORY The patient has a history of multiple inpatient psychiatric hospitalizations at [facility] and has been to [facility] and [facility] and has been diagnosed and treated for mood disorder. Review of the medical records indicate that he is currently on a combination of Seroquel, Wellbutrin, Depakote, Zoloft, and trazodone, but did not even take medication after discharge from the hospital. PAST MEDICAL HISTORY Diabetes mellitus, gastroesophageal reflux disease. ALLERGIES Morphine. PERSONAL AND SOCIAL HISTORY A 56 years white male, who reports he is single, unemployed, and essentially homeless and has poor social support system. MENTAL STATUS EXAMINATION Middle-aged white male, who was casually dressed with fair personal hygiene, appears to be in no acute distress or discomfort. He was awake and alert on interaction with intact orientation to time, place, and person. His mood was anxious and depressed with a congruent affect. His speech was slow and goal directed. He reports having suicidal ideations, but denies any homicidal ideations, and also denies any auditory or visual hallucinations. His insight and judgment remain significantly impaired. DIAGNOSTIC IMPRESSION Psychiatric: Bipolar disorder, most recent episode depressed, recurrent, moderate, without psychotic features; methamphetamine dependence, moderate; opioid dependence, moderate. Medical: Diabetes mellitus, gastroesophageal reflux disease, stressors. TREATMENT PLAN 1. The patient has presented with history of mood disorder, and has been decompensating and will need inpatient hospitalization for safety and stabilization. We will start him back on his home medications. We will adjust the medications and monitor response. 2. Supportive therapy was provided to the patient. 3. Safe, structured, and nourishing environment will be provided. ESTIMATED LENGTH OF STAY 5 to 7 days. ABILITY TO HELP SELF Limited. WILLINGNESS TO HELP SELF The patient appears to be willing to help self. Unit #: [id number] #: [id number] Patient: SIMONA DINERO 1. Communicative. 2. Cooperative. PROBLEMS 1. Chronic dysphoric symptoms. 2. Poor social support system. DISCHARGE CRITERIA This will be contingent upon the patient's ability to show resolution of his depression and anxiety and his ability to stay safe to himself, particularly after discharge from the hospital. Dictated by... Shanon Gómez M.D. SUNDAY/chandler TD: 07/18/2016 07:24 JOB #: [id number] PSYCHIATRIC ASSESSMENT Page 1 of 1 X Shanon Gómez MD PSYCHIATRIC ASSESSMENT
[2016-07-18 12:18] LABS: TMH HEPATITIS B SURFACE AG -JH Negative (Negative); TMH HEPATITIS C AB - JH Negative (Negative)
== END 2016-07-24 11:00 | DRG 885 ==
LOC: P1E 16:06
PROVIDERS: Psychiatry & Neurology Psychiatry
PROC: HZ2ZZZZ Detoxification Services for Substance Abuse Treatment (ICD-10-PCS; principal; 2016-07-17)
DX: F31.32 Bipolar disorder, current episode depressed, moderate (principal); F11.20 Opioid dependence, uncomplicated; F15.20 Other stimulant dependence, uncomplicated; K21.9 Gastro-esophageal reflux disease without esophagitis; E11.9 Type 2 diabetes mellitus without complications; E66.9 Obesity, unspecified; F17.210 Nicotine dependence, cigarettes, uncomplicated; Z88.5 Allergy status to narcotic agent
CPT/HCPCS: 82947; 86803; 87340; 87806